=== PATIENT | female | born 1935 | race Caucasian/White ===

== ENCOUNTER → 2018-05-16 | Outpatient (CLI) | payer MEDICARE ==
--- NOTE | 2018-05-16 13:44 | RADIOLOGY REPORT (SQ) ---
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 TECHNIQUE: CT scan of the chest performed using helical scanning technique with dynamic intravenous contrast injection. Images reviewed with lung, soft tissue and bone windows. Reconstructed coronal and sagittal MPR images reviewed. Additional 3 dimensional post-processing performed to develop Maximal Intensity Projection images (DE P). All images stored on PACS. All CT scanners at this facility use dose modulation, iterative reconstruction, and/or weight based d osing when appropriate to reduce radiation dose to as low as reasonably achievable (ALARA). [facility]: Dose Right [facility]: CareDose [facility]: Dose Right [facility]: Teradose 4D [facility]: [place] CONTRAST TYPE AND DOSE: contrast/concentration: Isovue 350.00 mg/ml; Total Contrast Delivered: 50.0 ml; Total Saline Delivered: 80.0 ml Contrast bolus optimized for the aorta. Not diagnostic for the pulmonary arteries. RENAL FUNCTION: Creatinine 0.6 RADIATION DOSE: CT Rad equipment meets quality standard of care and radiation dose reduction techniq ues were employed. CTDIvol: 14.2 - 25.4 mGy. DLP: 504 mGy-cm. . LIMITATIONS: None. FINDINGS: LUNGS AND PLEURA: No masses, infiltrates, or pneumothorax. No pleural effusions or pleura l calcifications. AORTA AND GREAT VESSELS: There is a 41 mm aneurysm of the ascending aorta. There is no aortic dissec tion. There is some mural thrombus in the thoracic aorta. HEART: No pericardial effusion. Moderate to marked coronary artery calcifications. PULMONARY ARTERIES: The bolus is not optimized for the pulmonary arteries and emboli cannot be exclud ed on the basis of this study. HILAR AND MEDIASTINAL STRUCTURES: No identified masses or abnormal nodes. HARDWARE: None in the chest. UPPER ABDOMEN: No significant findings. Limited exam. THYROID AND OTHER SOFT TISSUES: No masses. No adenopathy. BONES: No acute or significant finding. 3D MIPS: Confirm above findings. OTHER: No other significant finding. IMPRESSION: 41 mm aneurysm of the ascending aorta. No dissection. There are areas of mural thrombu s in the thoracic aorta. There is extensive coronary atherosclerosis. COMMENT: Quality ID # 436: Final reports with documentation of one or more dose reduction techniques (e.g., Automated exposure control, adjustment of the mA and/or kV according to patient size, use of iterative reconstruction technique) TECHNICAL DOCUMENTATION: JOB ID: [id number] [employer]- All Rights Reserved Reading location - IP/workstation name: [email or web address]
== END ==
LOC: RAD 13:28
PROVIDERS: ATTEND Internal Medicine Cardiovascular Disease
DX: I71.2 Thoracic aortic aneurysm, without rupture (principal)
CPT/HCPCS: 71275; 82565

== ENCOUNTER 2019-12-25 16:17 | Inpatient (IN) | payer MEDICARE ==
[2019-12-25 17:09] LABS: INTERNATIONAL RATION (INR) 1.03; PROTHROMBIN TIME 13.5 SEC (11.4-15.4)
[2019-12-25 17:22] LABS: ABSOLUTE BASOPHILS # (AUTO) 0.1 10^3/uL (0.0-0.2); ABSOLUTE EOSINOPHILS # (AUTO) 0.2 10^3/uL (0.0-0.6); HEMOGLOBIN 13.5 g/dL (12.0-15.5); TOTAL CELLS COUNTED % (AUTO) 100 %
[2019-12-25 17:29] LABS: ABSOLUTE LYMPHOCYTES (AUTO) 2.1 10^3/uL (0.5-4.7); ABSOLUTE MONOCYTES (AUTO) 1.2 10^3/uL (0.1-1.4); ABSOLUTE NEUT (AUTO) 8.2 10^3/uL (1.7-8.2); BASOPHILS % (AUTO) 1.2 % (0-2); EOSINOPHILS % (AUTO) 1.7 % (0-6); HEMATOCRIT 38.9 % (36.0-47.0); LYMPHOCYTES % (AUTO) 17.8 % (13-45); MEAN CORPUSCULAR HEMOGLOBIN 32.5 pg (27.0-33.4); MEAN CORPUSCULAR HGB CONC 34.6 g/dL (32.0-36.0); MEAN CORPUSCULAR VOLUME 94 fl (80-97); MONOCYTES % (AUTO) 9.9 % (3-13); PLATELET COUNT 339 10^3/uL (150-450); RED BLOOD COUNT 4.14 10^6/uL (3.72-5.28); RED CELL DISTRIBUTION WIDTH 13.3 % (11.5-14.0); SEGMENTED NEUTROPHILS % (AUTO) 69.4 % (42-78); WHITE BLOOD COUNT 11.8 10^3/uL (4.0-10.5)
[2019-12-25 17:35] LABS: ALBUMIN 4.3 g/dL (3.5-5.0); ALKALINE PHOSPHATASE 82 U/L (38-126); ANION GAP 9 (5-19); ASPARTATE AMINO TRANSFERASE 56 U/L (14-36); BILIRUBIN,DIRECT 0.1 mg/dL (0.0-0.4); BILIRUBIN,TOTAL 0.6 mg/dL (0.2-1.3); BLOOD UREA NITROGEN 14 mg/dL (7-20); CALCIUM 9.9 mg/dL (8.4-10.2); CARBON DIOXIDE 26 mmol/L (22-30); CHLORIDE 97 mmol/L (98-107); GLUCOSE 271 mg/dL (75-110); POTASSIUM 4.5 mmol/L (3.6-5.0); TOTAL PROTEIN 7.9 g/dL (6.3-8.2)
--- NOTE | 2019-12-25 17:40 | RADIOLOGY REPORT (SQ) ---
EXAM DESCRIPTION: CHEST SINGLE VIEW IMAGES COMPLETED DATE/TIME: 12/25/2019 4:19 pm REASON FOR STUDY: altered mental status COMPARISON: CT chest, 05/16/2018. EXAM PARAMETERS: NUMBER OF VIEWS: One view. TECHNIQUE: Single frontal radiographic view of the chest acquired. RADIATION DOSE: NA LIMITATIONS: None. FINDINGS: LUNGS AND PLEURA: Lungs are clear no focal consolidation or pleural effusion. No pneumoth orax. MEDIASTINUM AND HILAR STRUCTURES: No masses. Contour normal. HEART AND VASCULAR STRUCTURES: Heart normal in size. Normal vasculature. BONES: No acute findings. HARDWARE: None in the chest. OTHER: No other significant finding. IMPRESSION: NO ACUTE RADIOGRAPHIC FINDING IN THE CHEST. TECHNICAL DOCUMENTATION: JOB ID: [id number] 2010 [employer] All Rights Reserved Reading location - IP/workstation name: [email or web address]
[2019-12-25] MEDS ORDERED: LORAZEPAM INJ 2 MG/1 ML VIAL IV ONE (17:58)
--- NOTE | 2019-12-25 19:17 | ER Document Report ---
ED General - General Chief Complaint: Altered Mental Status Stated Complaint: AMS Time Seen by Provider: 12/25/19 16:46 Primary Care Provider: FRANNIE ZIMMERMAN MD [Primary Care Provider] - Follow up as needed TRAVEL OUTSIDE OF THE [place] IN LAST 30 DAYS: No - HPI Notes: This is an 84-year-old female brought into the emergency department for evaluation of altered mental status. Entire medical history is obtained from the daughter. Evidently the patient went to sleep at 11 PM. She woke at 5 AM to go to the bathroom with the daughter's assistance. She was acting normally. She went back to sleep immediately. She woke up at 1030. According to daughter, at that point she had altered mental status. She was laying on her left side, from which she still has deficits from her stroke. She was reaching out with her right side, acting confused. Her speech seemed garbled. Patient's daughter called EMS, but at 11 AM the patient refused to go in for transport. Daughter states that she was washing her face oddly, getting water all down her front, and her speech continued to be odd, so she eventually called EMS for further evaluation. They administered Versed and brought her here for further evaluation. The patient cannot offer me any meaningful history. She keeps yelling out for her daughter. She is angry, states she wants to go home. - Related Data Allergies/Adverse Reactions: No Known Allergies Allergy (Verified 12/25/19 16:22) Home Medications: amlodipine, vitamin D 3, aspirin 81 mg, CBD oil Past Medical History - General Information source: Relative, Emergency Med Personnel - Social History Smoking Status: Former Smoker Frequency of alcohol use: None Family History: Hypertension, Malignancy - Past Medical History Cardiac Medical History: Reports: Hx Hypertension, Other - Ascending aortic aneurysm Neurological Medical History: Reports: Hx Cerebrovascular Accident - With left- sided deficit, October 2013 Review of Systems - Review of Systems -: Yes ROS unobtainable due to patient's medical condition Physical Exam - Vital signs Vitals: Resp 17 12/25/19 19:38 - Notes Notes: This is an 84-year-old female who appears her stated age. She is exhibiting some dysarthria and mild to moderate aphasia. Vital signs reviewed, please refer to chart. Head is normocephalic, atraumatic. Pupils equal round, reactive to light. Neck is supple without meningismus. Heart is regular rate and rhythm. Lungs are clear to auscultation bilaterally. Abdomen is soft, nontender, normoactive bowel sounds throughout. Extremities without cyanosis, clubbing. Posterior calves are nontender. Peripheral pulses are equal. Skin is warm and dry. Patient is awake, alert, yelling out intermittently. She has some mild aphasia, mild dysarthria, but the majority of her words are intelli gible. She will not cooperate with exam, but does move all 4 extremities spontaneously, just less frequently the left upper extremity than others. She is hyperreflexive on the left. She has no gross facial asymmetry. Sensation appears to be intact to all 4 extremities. Course - Re-evaluation Re-evalutation: 12/25/19 19:15 Patient presents to the emergency department for evaluation. On initial evaluation, the patient would barely interact with me. She seemed altered, but was only exhibiting mild aphasia, which seemed consistent with simple delirium/altered mental status. On further examination, it became more clear that the patient may in fact be exhibiting signs of a CVA. CT scan of the head, and CTA of the head and neck are ordered, to evaluate for large vessel occlusion. This patient, even when she originally presented, was well outside of the TPA window given an onset between 5 AM and 10:30 AM this morning. She was already 5-1/2 hours from symptom onset at the earliest, which again puts her well outside the TPA window. I do however, think that it is appropriate to look for large vessel occlusion, to see if she is a candidate for intra-arterial TPA or other revascularization. Laboratory investigations were largely unremarkable. Still awaiting urinalysis. CT scan, CTA of the head and neck have been ordered. We will continue to monitor. I did consider MRI, but I suspect the patient will require full blown sedation to stay still long enough for such a study. 12/25/19 21:50 Patient's laboratory investigations are largely unremarkable. CT scan CTA of the head and neck are unremarkable for any large vessel acute lesion. I do strongly suspect that this patient has in fact had a CVA, but I do not believe that she has any intervention that is possible that is going to help at this time. Ordered a swallow screen, ordered aspirin. I spoke with Dr. Herring, he will admit the patient for further care. I will speak again to the patient's daughter and update her on findings. 12/25/19 22:09 I updated the patient's daughter. I notified her of my suspicion that the patient has had an acute stroke. I explained to her that she has no large vessel occlusion. Again she was well outside the TPA window. I explained to her that admission to this hospital for PT and OT, optimal medical therapy, was appropriate. The patient thought perhaps her mother should be sent to a large stroke center, and requests that this happen. Phone call currently pending to [facility]. 12/25/19 22:34 I spoke to neurology at [facility], nurse practitioner Christina Lowery. We discussed this patient at length. She states that she is not entirely convinced of the CVA diagnosis, agrees that there is no further intervention that would be indicated, and medical management would be appropriate in this patient with multiple medical issues and a DNR in place. I spoke with the daughter about this, she was updated on the plan. Patient will be admitted to [facility] [place], Dr. Herring. - Vital Signs Vital signs: Temp Pulse Resp BP Pulse Ox 88 30 H 151/117 H 94 12/25/19 19:47 12/25/19 19:47 12/25/19 19:47 12/25/19 19:47 - Laboratory Result Diagrams: 12/25/19 16:39 12/25/19 16:39 Laboratory results interpreted by me: 12/25/19 12/25/19 12/25/19 16:39 16:39 20:55 WBC 11.8 H Sodium 132.2 L Chloride 97 L Glucose 271 H AST 56 H ALT 37 H Urine Protein 100 H Urine Glucose (UA) 50 H Ur Leukocyte Esterase TRACE H - Diagnostic Test Radiology reviewed: Reports reviewed Radiology results interpreted by me: 12/25/19 21:01 Chest X-Ray 12/25/19 16:54 IMPRESSION: NO ACUTE RADIOGRAPHIC FINDING IN THE CHEST. Head CT 12/25/19 16:54 IMPRESSION: Involutional changes with chronic microvascular ischemia and no acute intracranial imaging finding. EVIDENCE OF ACUTE STROKE: NO. Head CTA 12/25/19 17:55 IMPRESSION: Right internal carotid artery diffuse narrowing, string sign but patency maintained, likely chronic in nature. Mild 50% left internal carotid artery stenosis. No evidence for intracranial large vessel occlusion. Neck CTA 12/25/19 17:56 IMPRESSION: Right internal carotid artery diffuse narrowing, string sign but patency maintained, likely chronic in nature. Mild 50% left internal carotid artery stenosis. No evidence for intracranial large vessel occlusion. - EKG Interpretation by Me Additional EKG results interpreted by me: 12/25/19 21:02 Sinus mechanism with a rate of 68 bpm. PAC noted. Normal axis for age. Nonspecific ST changes, no acute ST changes concerning for acute infarction. Discharge - Discharge Clinical Impression: Altered mental status, Probable CVA Condition: Stable Disposition: ADMITTED INPATIENT Admitting Provider: Nevaeh (Hospitalist) Unit Admitted: [facility]U Referrals: FRANNIE ZIMMERMAN MD [Primary Care Provider] - Follow up as needed
--- NOTE | 2019-12-25 20:06 | RADIOLOGY REPORT (SQ) ---
EXAM DESCRIPTION: CT HEAD WITHOUT IMAGES COMPLETED DATE/TIME: 12/25/2019 7:33 pm REASON FOR STUDY: altered mental status COMPARISON: None. TECHNIQUE: Axial images acquired through the brain without intravenous contrast. Images reviewed wi th bone, brain and subdural windows. Additional sagittal and coronal reconstructions were generated. Images stored on PACS. All CT scanners at this facility use dose modulation, iterative reconstruction, and/or weight based d osing when appropriate to reduce radiation dose to as low as reasonably achievable (ALARA). [facility]: Dose Right [facility]: CareDose [facility]: Dose Right [facility]: Teradose 4D [facility]: Smart Microdermis RADIATION DOSE: CT Rad equipment meets quality standard of care and radiation dose reduction techniq ues were employed. CTDIvol: 4.2 - 53.2 mGy. DLP: 1569 mGy-cm. mGy. LIMITATIONS: None. FINDINGS: VENTRICLES: Prominent ventricles secondary to involutional atrophy. CEREBRUM: No masses. No hemorrhage. No midline shift. No evidence for acute infarction. Areas of l ow density in the white matter most likely chronic small vessel ischemic changes. CEREBELLUM: No masses. No hemorrhage. No alteration of density. No evidence for acute infarction. EXTRAAXIAL SPACES: No fluid collections. No masses. ORBITS AND GLOBE: No intra- or extraconal masses. Normal contour of globe without masses. CALVARIUM: No fracture. PARANASAL SINUSES: No fluid or mucosal thickening. SOFT TISSUES: No mass or hematoma. OTHER: No other significant finding. IMPRESSION: Involutional changes with chronic microvascular ischemia and no acute intracranial imagi ng finding. EVIDENCE OF ACUTE STROKE: NO. COMMENT: Quality ID # 436: Final reports with documentation of one or more dose reduction techniques (e.g., Automated exposure control, adjustment of the mA and/or kV according to patient size, use of iterative reconstruction technique) TECHNICAL DOCUMENTATION: JOB ID: [id number] 2010 [employer]- All Rights Reserved Reading location - IP/workstation name: [email or web address]
--- NOTE | 2019-12-25 20:23 | RADIOLOGY REPORT (SQ) ---
EXAM DESCRIPTION: CT NECK ANGIOGRAPHY WITHOUT THEN WITH IV CONTRAST, CT HEAD ANGIOGRAPHY WITHOUT THEN WITH IV CONTRAST COMPLETED DATE/TME: 12/25/2019 17:56 (accession [id number]), 12/25/2019 17:55 (accession [id number]) CLINICAL HISTORY: 84 years, Female, neuro deficit, stroke suspected This exam was performed according to our departmental dose-optimization program which includes automated exposure control, adjustment of the mA and/or kVp according to patient size and/or use of iterative reconstruction technique where applicable. FINDINGS: No acute intracranial hemorrhage, mass effect or midline shift. No extra-axial fluid collections. Ventricles and subarachnoid spaces are moderately dilated consistent with cerebral atrophy. Moderate patchy hypodense areas in the periventricular white matter both cerebral hemispheres consistent with chronic small vessel ischemic changes. Visualized paranasal sinuses and the mastoid air cells are clear. The skull is intact. Aortic arch is moderately atherosclerotic with ulcerated plaque. Innominate, right subclavian and left subclavian artery is moderately atherosclerotic with mild tortuous vessels. Common carotid arteries are tortuous without significant stenosis. Right carotid bulb demonstrates atherosclerotic changes. The right internal carotid artery demonstrates streak sign with diffuse narrowing throughout its course. Left internal carotid artery demonstrates mild 50% stenosis. External carotid arteries are patent. The vertebral arteries are patent with left vertebral artery being dominant. Intracranial portions of the internal carotid arteries demonstrate moderate atherosclerotic changes of the cavernous sinus portions of the internal carotid arteries. The middle and anterior cerebral arteries are preserved. Basilar artery is widely patent. Posterior cerebral arteries are patent. Left posterior communicating artery is intact. Anterior communicating artery is intact. There is mild motion artifact in the brain. IMPRESSION: Right internal carotid artery diffuse narrowing, string sign but patency maintained, likely chronic in nature. Mild 50% left internal carotid artery stenosis. No evidence for intracranial large vessel occlusion.
[2019-12-25 21:26] LABS: APPEARANCE,URINE CLEAR; BILIRUBIN,URINE NEGATIVE (NEGATIVE); COLOR,URINE STRAW; GLUCOSE, URINE 50 mg/dL (NEGATIVE); KETONES,URINE NEGATIVE (NEGATIVE); LEUKOCYTE ESTERASE,URINE TRACE (NEGATIVE); NITRITE,URINE NEGATIVE (NEGATIVE); PROTEIN,URINE 100 mg/dL (NEGATIVE); URINE SPECIFIC GRAVITY 1.038; UROBILINOGEN,URINE NEGATIVE mg/dL (<2.0)
[2019-12-25] MEDS ORDERED: ASPIRIN 325 MG TABLET PO ONE (21:47)
[2019-12-25] MEDS ORDERED: MORPHINE SULFATE 10 MG/ML INJ IV PRN (22:45)
[2019-12-25] MEDS ORDERED: ACETAMINOPHEN 650 MG SUPP.RECT PR PRN (23:14)
[2019-12-25] MEDS ORDERED: MAGNESIUM HYDROXIDE SUSP 30 ML UDCUP PO PRN (23:14)
[2019-12-25] MEDS ORDERED: DOCUSATE SODIUM 100 MG CAPSULE PO PRN (23:14)
[2019-12-25] MEDS ORDERED: DEXTROSE 40% GEL 15 GM TUBE PO PRN ×2 (23:18)
[2019-12-25] MEDS ORDERED: LORAZEPAM INJ 2 MG/1 ML VIAL IV PRN (23:18)
[2019-12-25] MEDS ORDERED: DEXTROSE 50%-WATER 25 GM/50 ML DISP.SYRIN IV PRN ×2 (23:18)
[2019-12-25] MEDS ORDERED: HYDRALAZINE HCL INJ/PF 20 MG/1 ML SDV IV PRN (23:18)
[2019-12-25] MEDS ORDERED: GLUCAGON,HUMAN RECOMB 1 MG INJ IM PRN (23:18)
[2019-12-25] MEDS ORDERED: METOPROLOL TARTRATE PF/INJ 5 MG/5 ML SDV IV PRN (23:18)
[2019-12-25] MEDS ORDERED: PROMETHAZINE HCL INJ 25 MG/1 ML VIAL IV PRN (23:19)
[2019-12-26] MEDS ORDERED: FAMOTIDINE INJ/PF 20 MG/2 ML SDV IV ONE (00:30)
--- NOTE | 2019-12-26 00:48 | PDOC H&P ---
History of Present Illness Admission Date/PCP: 12/25/2019 22:42 FRANNIE ZIMMERMAN MD Patient complains of: Altered mental status History of Present Illness: TWILA SEAY is a 84 year old female who presented to the emergency room via EMS with acute altered mental status. Patient is combative and uncooperative with acute delirium. She is unable to participate in providing medical history. Patient's daughter indicates that she was last normal when she awoke at 5 AM to go to the bathroom. When the patient woke again at 10:30 AM she seemed to be having trouble with her speech and yelling and uncooperative. She refused to be transported to the hospital at that time, but continued to have progressively more garbled speech and was increasingly uncooperative and combative, resulting in her eventual transfer port to the emergency room. In the emergency room she was noted to have mild dysarthria, delirium with confusion and was uncooperative with her neurologic exam. A CT scan of her head showed no acute changes and a CTA of the head and neck were also unremarkable. She was subsequently admitted for further evaluation and treatment per the stroke protocol. Past Medical History Past Medical History: The patient is unable to provide input due to her acute delirium, so past medical history, past surgical history, family medical history and social history information is taken from the best available reliable source. 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 Denies: Hemorrhagic CVA, Seizures Endocrine Medical History: Reports: Diabetes Mellitus Type 2 Denies: Diabetes Mellitus Type 1 Renal/ Medical History: Denies: Chronic Kidney Disease, Nephrolithiasis Malignancy Medical History: Reports: None GI Medical History: Denies: Cirrhosis, Hepatitis Musculoskeltal Medical History: Denies: Arthritis, Gout Skin Medical History: Denies: Eczema, Psoriasis Psychiatric Medical History: Denies: Alcohol Dependency, Substance Abuse, Tobacco Dependency Traumatic Medical History: Reports: None Hematology: Denies: Anemia, Bleeding Tendencies Infectious Medical History: Reports: None Past Surgical History Past Surgical History: The patient is unable to provide input due to her acute delirium, so past medical history, past surgical history, family medical history and social history information is taken from the best available reliable source. Past Surgical History: Reports: Other - No surgical history is available at this time. Social History Information Source: Relative, Emergency Med Personnel, [facility] Records Lives with: Family Smoking Status: Former Smoker Electronic Cigarette use?: No Frequency of Alcohol Use: None Hx Recreational Drug Use: No Drugs: None Hx Prescription Drug Abuse: No Past Social History Note: The patient is unable to provide input due to her acute delirium, so past medical history, past surgical history, family medical history and social history information is taken from the best available reliable source. - Advance Directive Resuscitation Status: Do Not Resuscitate Surrogate healthcare decision maker:: Katherin White Family History Family History: Hypertension, Malignancy Family History: The patient is unable to provide input due to her acute delirium, so past medical history, past surgical history, family medical history and social history information is taken from the best available reliable source. Parental Family History Reviewed: Yes Children Family History Reviewed: No Sibling(s) Family History Reviewed.: Yes Medication/Allergy Allergies/Adverse Reactions: No Known Allergies Allergy (Verified 12/25/19 16:22) Review of Systems ROS unobtainable: Due to mental status - Acute delirium Physical Exam Vital Signs: Temp Pulse Resp BP Pulse Ox 88 30 H 151/117 H 94 12/25/19 19:47 12/25/19 19:47 12/25/19 19:47 12/25/19 19:47 Intake & Output 12/23/19 12/24/19 12/25/19 23:59 23:59 23:59 Weight 72.575 kg General appearance: PRESENT: other - Combative and belligerent. ABSENT: cooperative - Uncooperative with exam Head exam: PRESENT: atraumatic, normocephalic Eye exam: PRESENT: conjunctiva pink. ABSENT: conjunctival injection, scleral icterus Ear exam: PRESENT: normal external ear exam. ABSENT: bleeding, drainage Mouth exam: PRESENT: dry mucosa, neck supple Neck exam: ABSENT: thyromegaly, tracheal deviation Respiratory exam: PRESENT: clear to auscultation karyn, symmetrical, unlabored Cardiovascular exam: PRESENT: RRR. ABSENT: clicks, gallop, rubs Pulses: PRESENT: normal radial pulses, normal dorsalis pedis pul Vascular exam: PRESENT: normal capillary refill. ABSENT: pallor GI/Abdominal exam: PRESENT: normal bowel sounds, soft Rectal exam: PRESENT: deferred Extremities exam: ABSENT: joint swelling, pedal edema Musculoskeletal exam: ABSENT: deformity, dislocation Neurological exam: PRESENT: other - Combative and belligerent, uncooperative with exam Psychiatric exam: PRESENT: agitated, other - Uncooperative Focused psych exam: PRESENT: psychomotor agitation Skin exam: PRESENT: dry, intact, warm. ABSENT: jaundice, rash, urticaria Results Laboratory Results: 12/25/19 16:39 12/25/19 16:39 12/25/19 12/25/19 12/25/19 16:39 16:39 20:55 WBC 11.8 H RBC 4.14 Hgb 13.5 Hct 38.9 MCV 94 MCH 32.5 MCHC 34.6 RDW 13.3 Plt Count 339 Seg Neutrophils % 69.4 Sodium 132.2 L Potassium 4.5 Chloride 97 L Carbon Dioxide 26 Anion Gap 9 BUN 14 Creatinine 0.55 Est GFR ( Amer) > 60 Glucose 271 H Calcium 9.9 Magnesium 1.9 Total Bilirubin 0.6 AST 56 H Alkaline Phosphatase 82 Total Protein 7.9 Albumin 4.3 Urine Color STRAW Urine Appearance CLEAR Urine pH 7.0 Ur Specific [place] 1.038 Urine Protein 100 H Urine Glucose (UA) 50 H Urine Ketones NEGATIVE Urine Blood NEGATIVE Urine Nitrite NEGATIVE Ur Leukocyte Esterase TRACE H Urine WBC (Auto) 5 Urine RBC (Auto) 2 12/25/19 16:39 Troponin I < 0.012 Impressions: Chest X-Ray 12/25/19 16:54 IMPRESSION: NO ACUTE RADIOGRAPHIC FINDING IN THE CHEST. Head CT 12/25/19 16:54 IMPRESSION: Involutional changes with chronic microvascular ischemia and no acute intracranial imaging finding. EVIDENCE OF ACUTE STROKE: NO. Head CTA 12/25/19 17:55 IMPRESSION: Right internal carotid artery diffuse narrowing, string sign but patency maintained, likely chronic in nature. Mild 50% left internal carotid artery stenosis. No evidence for intracranial large vessel occlusion. Neck CTA 12/25/19 17:56 IMPRESSION: Right internal carotid artery diffuse narrowing, string sign but patency maintained, likely chronic in nature. Mild 50% left internal carotid artery stenosis. No evidence for intracranial large vessel occlusion. Assessment and Plan - Diagnosis (1) Altered mental status Qualifiers: Altered mental status type: delirium Qualified Code(s): R41.0 - Disorientation, unspecified Is this a current diagnosis for this admission?: Yes (2) Diabetes mellitus type 2 in nonobese Is this a current diagnosis for this admission?: Yes (3) Essential hypertension Is this a current diagnosis for this admission?: Yes (4) Hyperglycemia due to type 2 diabetes mellitus Is this a current diagnosis for this admission?: Yes (5) Hyponatremia Is this a current diagnosis for this admission?: Yes - Plan Summary Summary: Patient will be admitted to [facility], where she will receive routine supportive and symptomatic cares per the stroke protocol. Aspirin therapy was initiated in the emergency room. She will receive Ativan 1 mg IV every 4 hours as needed for anxiety or restlessness. She will receive Haldol 5 mg IV every 4 hours as needed for agitation. A speech therapy consultation and physical therapy consultation will be obtained. Patient will be on a cardiac and diabetic restricted diet. If patient becomes cooperative, consideration for an MRI of the head would be appropriate if she continues to demonstrate new psychologic changes/neurologic deficits. - Time Time Spent with patient: Less than 15 minutes Medications reviewed and adjusted accordingly: Yes Anticipated discharge: SNF - Inpatient Certification Based on my medical assessment, after consideration of the patient's comorbidities, presenting symptoms, or acuity I expect that the services needed warrant INPATIENT care.: Yes I certify that my determination is in accordance with my understanding of Medicare's requirements for reasonable and necessary INPATIENT services [42 CFR 412.3e].: Yes Medical Necessity: Significant Comorbidiites Make Outpatient Treatment Too Risky, Need Close Monitoring Due to Risk of Patient Decompensation, Need For Continuous Telemetry Monitoring, Need for Neurological Checks, Risk of Complication if Not Cared For in Hospital
[2019-12-26] MEDS: HEPARIN SOD (PORCINE) 5,000 UNIT/ML 1 ML VIAL SUBCUT SCH ×3 (06:37→21:47)
[2019-12-26 07:00] LABS: HEMATOCRIT 36.8 % (36.0-47.0); HEMOGLOBIN 12.9 g/dL (12.0-15.5); MEAN CORPUSCULAR HEMOGLOBIN 32.6 pg (27.0-33.4); MEAN CORPUSCULAR VOLUME 93 fl (80-97); PLATELET COUNT 323 10^3/uL (150-450); RED BLOOD COUNT 3.95 10^6/uL (3.72-5.28); RED CELL DISTRIBUTION WIDTH 13.3 % (11.5-14.0); WHITE BLOOD COUNT 12.7 10^3/uL (4.0-10.5)
[2019-12-26 07:22] LABS: ANION GAP 10 (5-19); BLOOD UREA NITROGEN 11 mg/dL (7-20); CALCIUM 9.4 mg/dL (8.4-10.2); CARBON DIOXIDE 25 mmol/L (22-30); CHLORIDE 100 mmol/L (98-107); CHOLESTEROL 243.22 mg/dL (0-200); GLUCOSE 184 mg/dL (75-110); POTASSIUM 4.2 mmol/L (3.6-5.0); TRIGLYCERIDES 247 mg/dL (<150)
[2019-12-26 07:33] LABS: DIRECT LDL 174 mg/dL (<100)
[2019-12-26 07:35] LABS: VLDL CHOLESTEROL 49.4 mg/dL (10-31)
--- NOTE | 2019-12-26 07:42 | EKG REPORT ---
SEVERITY:- ABNORMAL ECG - SINUS RHYTHM ATRIAL PREMATURE COMPLEX PROBABLE INFERIOR INFARCT, OLD LATERAL LEADS ARE ALSO INVOLVED : Confirmed by: Wesley Pelaez MD 26-Dec-2019 07:42:12
[2019-12-26] MEDS: INSULIN REG, HUMAN 100 UNIT/ML 3 ML VIAL (PYX) SUBCUT SCH ×3 (08:08→17:00)
[2019-12-26] MEDS: FAMOTIDINE INJ/PF 20 MG/2 ML SDV IV SCH ×2 (10:44→21:49)
[2019-12-26] MEDS: ASPIRIN 81 MG TABLET, ENT COATED PO SCH (10:44)
[2019-12-26] MEDS: CEFTRIAXONE 1 GM/D5W RTU 1 GM/50 ML RTUPB IV SCH (10:47)
--- NOTE | 2019-12-26 13:44 | RADIOLOGY REPORT (SQ) ---
EXAM DESCRIPTION: MRI HEAD WITHOUT; MRA HEAD WITHOUT IMAGES COMPLETED DATE/TIME: 12/26/2019 1:23 pm REASON FOR STUDY: Aphasia r/o CVA; AMS, STROKE COMPARISON: CT brain 12/25/2019 CT angio head and neck 12/25/2019 TECHNIQUE: Multiplanar imaging includes non-contrasted T1, T2, FLAIR, and diffusion with ADC map seq uences. Images stored on PACS. [place] [facility] [place] MRA exam was performed with 3D [id number] acquisition. Source data and maximum intensity projected images were reviewed. Images stored on PACs. LIMITATIONS: None. FINDINGS: ANATOMY: No developmental anomalies. Normal vascular flow voids. Pituitary fossa normal. CSF SPACES: Normal in size and contour. No hemorrhage. CEREBRUM: Diffusion-weighted images are positive for acute/early subacute ischemic change in the left posterior temporal cortex and subcortical white matter extending into the posterior insular cortex. Changes are best shown on axial images 12-17. There is associated signal abnormality on FLAIR/T2 rodríguez ggesting that this is greater than 24 hours old. No superimposed hemorrhage. Findings discussed wit parveen Schaeffer. Elsewhere, patient has moderate chronic small vessel ischemic change in the hemispheric white matter right greater than left. Old lacunar infarcts in the left basal ganglia. POSTERIOR FOSSA: Moderate chronic pontine white matter disease. No hemorrhage. No edema, masses or ma ss effect. Internal auditory canals, cerebello-pontine angles, mastoids normal. DIFFUSION IMAGING: Negative for acute or sub-acute infarction. ORBITS: No masses. Globes normal. PARANASAL SINUSES: No fluid levels. Mucosa normal. [place] MRA: Source data and maximum intensity projected images demonstrate a decrease in signal intensity through out the right high cervical, skullbase, paraclinoid ICA as compared to the left. Decreased flow sign al in the right MCA and its major branches as compared to left. Prior CT angio of the neck demonstra qamar a diminutive cervical ICA from the bifurcation through the intracranial circulation, question rem ote prior cervical ICA dissection. Normal flow signal in the left carotid cervical, skullbase, parasellar circulation. Normal flow in t he bilateral anterior cerebral and left middle cerebral artery. Vertebrobasilar system is unremarkable in the field of view IMPRESSION: Left-sided and early subacute nonhemorrhagic posterior temporal/insular cortex infarct. Moderate chronic white matter disease elsewhere in the brain and lulu. 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 Findings are similar compared to CTA head and neck 12/25/2019. Findings discussed with Dr. Schaeffer EVIDENCE OF ACUTE STROKE: Yes, early subacute left posterior temporal cortical and subcortical white matter infarct. TECHNICAL DOCUMENTATION: JOB ID: [id number] 2010 [employer]- All Rights Reserved Reading location - IP/workstation name: [id number]
--- NOTE | 2019-12-26 13:44 | RADIOLOGY REPORT (SQ) ---
EXAM DESCRIPTION: MRI HEAD WITHOUT; MRA HEAD WITHOUT IMAGES COMPLETED DATE/TIME: 12/26/2019 1:23 pm REASON FOR STUDY: Aphasia r/o CVA; AMS, STROKE COMPARISON: CT brain 12/25/2019 CT angio head and neck 12/25/2019 TECHNIQUE: Multiplanar imaging includes non-contrasted T1, T2, FLAIR, and diffusion with ADC map seq uences. Images stored on PACS. [place] [facility] [place] MRA exam was performed with 3D [id number]-[id number] acquisition. Source data and maximum intensity projected images were reviewed. Images stored on PACs. LIMITATIONS: None. FINDINGS: ANATOMY: No developmental anomalies. Normal vascular flow voids. Pituitary fossa normal. CSF SPACES: Normal in size and contour. No hemorrhage. CEREBRUM: Diffusion-weighted images are positive for acute/early subacute ischemic change in the left posterior temporal cortex and subcortical white matter extending into the posterior insular cortex. Changes are best shown on axial images 12-17. There is associated signal abnormality on FLAIR/T2 rodríguez ggesting that this is greater than 24 hours old. No superimposed hemorrhage. Findings discussed wit parveen Schaeffer. Elsewhere, patient has moderate chronic small vessel ischemic change in the hemispheric white matter right greater than left. Old lacunar infarcts in the left basal ganglia. POSTERIOR FOSSA: Moderate chronic pontine white matter disease. No hemorrhage. No edema, masses or ma ss effect. Internal auditory canals, cerebello-pontine angles, mastoids normal. DIFFUSION IMAGING: Negative for acute or sub-acute infarction. ORBITS: No masses. Globes normal. PARANASAL SINUSES: No fluid levels. Mucosa normal. [place] MRA: Source data and maximum intensity projected images demonstrate a decrease in signal intensity through out the right high cervical, skullbase, paraclinoid ICA as compared to the left. Decreased flow sign al in the right MCA and its major branches as compared to left. Prior CT angio of the neck demonstra qamar a diminutive cervical ICA from the bifurcation through the intracranial circulation, question rem ote prior cervical ICA dissection. Normal flow signal in the left carotid cervical, skullbase, parasellar circulation. Normal flow in t he bilateral anterior cerebral and left middle cerebral artery. Vertebrobasilar system is unremarkable in the field of view IMPRESSION: Left-sided and early subacute nonhemorrhagic posterior temporal/insular cortex infarct. Moderate chronic white matter disease elsewhere in the brain and lulu. 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 Findings are similar compared to CTA head and neck 12/25/2019. Findings discussed with Dr. Schaeffer EVIDENCE OF ACUTE STROKE: Yes, early subacute left posterior temporal cortical and subcortical white matter infarct. TECHNICAL DOCUMENTATION: JOB ID: [id number] 2010 [employer]- All Rights Reserved Reading location - IP/workstation name: [id number]
[2019-12-26] MEDS ORDERED: DEXTROSE 40% GEL 15 GM TUBE PO PRN ×2 (17:55)
[2019-12-26] MEDS ORDERED: GLUCAGON,HUMAN RECOMB 1 MG INJ IM PRN (17:55)
[2019-12-26] MEDS ORDERED: DEXTROSE 50%-WATER 25 GM/50 ML DISP.SYRIN IV PRN ×2 (17:55)
[2019-12-26] MEDS ORDERED: ENALAPRIL MALEATE 2.5 MG TABLET PO SCH (18:00)
--- NOTE | 2019-12-26 18:07 | PDOC H&P ---
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 Denies: Hemorrhagic CVA, Seizures Endocrine Medical History: Reports: Diabetes Mellitus Type 2 Denies: Diabetes Mellitus Type 1 Renal/ Medical History: Denies: Chronic Kidney Disease, Nephrolithiasis Malignancy Medical History: Reports: None GI Medical History: Denies: Cirrhosis, Hepatitis Musculoskeltal Medical History: Denies: Arthritis, Gout Skin Medical History: Denies: Eczema, Psoriasis Psychiatric Medical History: Denies: Alcohol Dependency, Depression, Substance Abuse, Tobacco Dependency Traumatic Medical History: Reports: None Hematology: Denies: Anemia, Bleeding Tendencies Infectious Medical History: Reports: None Past Surgical History Past Surgical History: Reports: Other - No surgical history is available at this time. Social History Lives with: Family Smoking Status: Former Smoker Electronic Cigarette use?: No Frequency of Alcohol Use: None Hx Recreational Drug Use: No Drugs: None Hx Prescription Drug Abuse: No - Advance Directive Resuscitation Status: Do Not Resuscitate Family History Family History: Hypertension, Malignancy Parental Family History Reviewed: Yes Children Family History Reviewed: Yes Sibling(s) Family History Reviewed.: Yes Medication/Allergy Home Medications: Amlodipine Besylate [Norvasc 5 mg Tablet] 5 mg PO DAILY 12/26/19 Aspirin [Aspirin 325 mg Tablet] 325 mg PO ASDIR PRN 12/26/19 Aspirin [Ecotrin 81 mg EC Tablet] 81 mg PO DAILY 12/26/19 Cholecalciferol (Vitamin D3) [Vitamin D3 1000 Unit Tablet] 1,000 unit PO DAILY 12/26/19 Cranberry [Cranberry 400 mg Capsule] 400 mg PO DAILY 12/26/19 Cyanocobalamin (Vitamin B-12) [Vitamin B12] 2,500 mcg PO DAILY 12/26/19 Melatonin [Melatonin 5 mg Tablet] 10 mg PO QHS 12/26/19 Multivit with Calcium,Iron,Min [Women's Daily Formula] 1 tab PO DAILY 12/26/19 Psyllium Husk (with Sugar) [Metamucil Packet] 1 packet PO DAILY 12/26/19 Allergies/Adverse Reactions: No Known Allergies Allergy (Verified 12/25/19 16:22) Physical Exam Vital Signs: Temp Pulse Resp BP Pulse Ox 98.6 F 92 18 169/57 H 96 12/26/19 17:10 12/26/19 17:10 12/26/19 17:10 12/26/19 17:10 12/26/19 17:10 Intake & Output 12/25/19 12/26/19 12/27/19 06:59 06:59 06:59 Intake Total 0 550 Output Total 0 Balance 0 550 Weight 55.4 kg Results Laboratory Results: 12/26/19 06:13 12/26/19 06:13 12/25/19 12/26/19 12/26/19 20:55 06:13 06:13 WBC 12.7 H RBC 3.95 Hgb 12.9 Hct 36.8 MCV 93 MCH 32.6 MCHC 35.0 RDW 13.3 Plt Count 323 Sodium 134.8 L Potassium 4.2 Chloride 100 Carbon Dioxide 25 Anion Gap 10 BUN 11 Creatinine 0.56 Est GFR ( Amer) > 60 Glucose 184 H Calcium 9.4 Triglycerides 247 H Cholesterol 243.22 H LDL Cholesterol Direct 174 H VLDL Cholesterol 49.4 H HDL Cholesterol 36 L Urine Color STRAW Urine Appearance CLEAR Urine pH 7.0 Ur Specific [place] 1.038 Urine Protein 100 H Urine Glucose (UA) 50 H Urine Ketones NEGATIVE Urine Blood NEGATIVE Urine Nitrite NEGATIVE Ur Leukocyte Esterase TRACE H Urine WBC (Auto) 5 Urine RBC (Auto) 2 12/25/19 16:39 Troponin I < 0.012 Impressions: Chest X-Ray 12/25/19 16:54 IMPRESSION: NO ACUTE RADIOGRAPHIC FINDING IN THE CHEST. Head CT 12/25/19 16:54 IMPRESSION: Involutional changes with chronic microvascular ischemia and no acute intracranial imaging finding. EVIDENCE OF ACUTE STROKE: NO. Head CTA 12/25/19 17:55 IMPRESSION: Right internal carotid artery diffuse narrowing, string sign but patency maintained, likely chronic in nature. Mild 50% left internal carotid artery stenosis. No evidence for intracranial large vessel occlusion. Neck CTA 12/25/19 17:56 IMPRESSION: Right internal carotid artery diffuse narrowing, string sign but patency maintained, likely chronic in nature. Mild 50% left internal carotid artery stenosis. No evidence for intracranial large vessel occlusion. Brain MRI with MRA 12/26/19 00:00 IMPRESSION: Left-sided and early subacute nonhemorrhagic posterior temporal/insular cortex infarct. Moderate chronic white matter disease elsewhere in the brain and luul. 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 Findings are similar compared to CTA head and neck 12/25/2019. Findings discussed with Dr. Schaeffer EVIDENCE OF ACUTE STROKE: Yes, early subacute left posterior temporal cortical and subcortical white matter infarct. Head MRI 12/26/19 11:28 IMPRESSION: Left-sided and early subacute nonhemorrhagic posterior temporal/insular cortex infarct. Moderate chronic white matter disease elsewhere in the brain and lulu. 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 Findings are similar compared to CTA head and neck 12/25/2019. Findings discussed with Dr. Schaeffer EVIDENCE OF ACUTE STROKE: Yes, early subacute left posterior temporal cortical and subcortical white matter infarct. Assessment and Plan - Diagnosis (1) Non-hemorrhagic cerebrovascular accident (CVA) Is this a current diagnosis for this admission?: Yes Plan: Acute left-sided nonhemorrhagic posterior temporal/insular cortex infarct. Decreased flow signal in a small right cervical and skull base ICA. Moderate chronic white matter disease elsewhere in the brain and lulu. Patient has severe expressive and receptive aphasia. Continue telemetry, neurochecks, antiplatelets, permissive hypertension, PT/OT/ST, fall, seizure and aspiration precautions. (2) Hypertension Is this a current diagnosis for this admission?: Yes Plan: History of untreated hypertension. SBP 120-171. Permissive hypertension in the first 24 to 48 hours. We will slowly lower BP to normal levels after that. Preferably will use enalapril given history of diabetes. (3) Hyperlipidemia Is this a current diagnosis for this admission?: Yes Plan: ASCVD score of 60%. We will start on high intensity statin. Monitor LFTs. Monitor for myositis. Outpatient PCP follow-up. (4) Altered mental status Qualifiers: Altered mental status type: delirium Qualified Code(s): R41.0 - Disorientation, unspecified Is this a current diagnosis for this admission?: Yes Plan: Most likely to acute stroke. Patient has severe expressive and receptive aphasia. Plan as per #1. (5) Diabetes mellitus type 2 in nonobese Is this a current diagnosis for this admission?: Yes Plan: Newly diagnosed diabetes. Hemoglobin A1c 8.5%. Diabetic diet. Basal, sliding scale and correctional insulin. Accu-Cheks. Hypoglycemic protocol. Patient has good renal function and is a candidate for oral antidiabetic. We will switch to oral antidiabetics upon discharge. Outpatient PCP follow-up. Diabetic education. - Plan Summary Summary: Patient will be admitted to [facility], where she will receive routine supportive and symptomatic cares per the stroke protocol. Aspirin therapy was initiated in the emergency room. She will receive Ativan 1 mg IV every 4 hours as needed for anxiety or restlessness. She will receive Haldol 5 mg IV every 4 hours as needed for agitation. A speech therapy consultation and physical therapy consultation will be obtained. Patient will be on a cardiac and diabetic rest ricted diet. If patient becomes cooperative, consideration for an MRI of the head would be appropriate if she continues to demonstrate new psychologic changes/neurologic deficits.
[2019-12-26] MEDS: MELATONIN 5 MG TABLET PO SCH (21:48)
[2019-12-26] MEDS: ATORVASTATIN CALCIUM 80 MG TABLET PO SCH (21:48)
[2019-12-26] MEDS: INSULIN LISPRO 100 UNIT/ML 3 ML VIAL SUBCUT SCH (21:48)
[2019-12-26] MEDS: INSULIN GLARGINE,HUM.REC.ANLOG 1,000 UNIT/10 ML VIAL SUBCUT SCH (22:15)
[2019-12-27] MEDS: HEPARIN SOD (PORCINE) 5,000 UNIT/ML 1 ML VIAL SUBCUT SCH ×3 (05:55→22:35)
[2019-12-27] MEDS: FAMOTIDINE INJ/PF 20 MG/2 ML SDV IV SCH ×2 (10:05→22:38)
[2019-12-27] MEDS: CEFTRIAXONE 1 GM/D5W RTU 1 GM/50 ML RTUPB IV SCH (10:06)
[2019-12-27] MEDS: ASPIRIN 81 MG TABLET, ENT COATED PO SCH (10:06)
[2019-12-27] MEDS: INSULIN LISPRO 100 UNIT/ML 3 ML VIAL SUBCUT SCH ×4 (10:07→22:36)
[2019-12-27] MEDS: ENALAPRIL MALEATE 5 MG TABLET PO SCH (10:15)
--- NOTE | 2019-12-27 12:39 | PDOC PROGRESS REPORT ---
Subjective Progress Note for:: 12/26/19 Subjective:: TWILA SEAY is a 84 year old female who presented to the emergency room via EMS with acute altered mental status. Patient is combative and uncooperative with acute delirium. She is unable to participate in providing medical history. Patient's daughter indicates that she was last normal when she awoke at 5 AM to go to the bathroom. When the patient woke again at 10:30 AM she seemed to be having trouble with her speech and yelling and uncooperative. She refused to be transported to the hospital at that time, but continued to have progressively more garbled speech and was increasingly uncooperative and combative, resulting in her eventual transfer port to the emergency room. In the emergency room she was noted to have mild dysarthria, delirium with confusion and was uncooperative with her neurologic exam. A CT scan of her head showed no acute changes and a CTA of the head and neck were also unremarkable. She was subsequently admitted for further evaluation and treatment per the stroke protocol. Reason For Visit: ACUTE ALTERED MENTAL STATUS WITH DELIRIUM Physical Exam Vital Signs: Temp Pulse Resp BP Pulse Ox 98.2 F 61 20 160/94 H 93 12/27/19 06:56 12/27/19 08:00 12/27/19 08:00 12/27/19 08:00 12/27/19 08:00 Intake & Output 12/26/19 12/27/19 12/28/19 06:59 06:59 06:59 Intake Total 0 1200 Output Total 0 Balance 0 1200 Weight 55.4 kg 54.6 kg General appearance: PRESENT: no acute distress, well-developed, well-nourished Head exam: PRESENT: atraumatic, normocephalic Respiratory exam: PRESENT: clear to auscultation karyn. ABSENT: rales, rhonchi, wheezes Cardiovascular exam: PRESENT: RRR. ABSENT: diastolic murmur, rubs, systolic murmur GI/Abdominal exam: PRESENT: normal bowel sounds, soft. ABSENT: distended, guarding, mass, organolmegaly, rebound, tenderness Neurological exam: PRESENT: alert, awake, oriented to person, CN II-XII grossly intact, aphasic. ABSENT: motor sensory deficit Skin exam: PRESENT: dry, intact, warm. ABSENT: cyanosis, rash Results Laboratory Results: 12/26/19 06:13 12/26/19 06:13 12/25/19 20:55 Catheterized Urine Urine Culture - Final Enterococcus Faecalis(Group D) 12/25/19 16:39 Troponin I < 0.012 Impressions: Chest X-Ray 12/25/19 16:54 IMPRESSION: NO ACUTE RADIOGRAPHIC FINDING IN THE CHEST. Head CT 12/25/19 16:54 IMPRESSION: Involutional changes with chronic microvascular ischemia and no acute intracranial imaging finding. EVIDENCE OF ACUTE STROKE: NO. Head CTA 12/25/19 17:55 IMPRESSION: Right internal carotid artery diffuse narrowing, string sign but patency maintained, likely chronic in nature. Mild 50% left internal carotid artery stenosis. No evidence for intracranial large vessel occlusion. Neck CTA 12/25/19 17:56 IMPRESSION: Right internal carotid artery diffuse narrowing, string sign but patency maintained, likely chronic in nature. Mild 50% left internal carotid artery stenosis. No evidence for intracranial large vessel occlusion. Brain MRI with MRA 12/26/19 00:00 IMPRESSION: Left-sided and early subacute nonhemorrhagic posterior temporal/insular cortex infarct. Moderate chronic white matter disease elsewhere in the brain and lulu. 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 Findings are similar compared to CTA head and neck 12/25/2019. Findings discussed with Dr. Schaeffer EVIDENCE OF ACUTE STROKE: Yes, early subacute left posterior temporal cortical and subcortical white matter infarct. Head MRI 12/26/19 11:28 IMPRESSION: Left-sided and early subacute nonhemorrhagic posterior temporal/insular cortex infarct. Moderate chronic white matter disease elsewhere in the brain and lulu. 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 Findings are similar compared to CTA head and neck 12/25/2019. Findings discussed with Dr. Schaeffer EVIDENCE OF ACUTE STROKE: Yes, early subacute left posterior temporal cortical and subcortical white matter infarct. Assessment and Plan - Diagnosis (1) Non-hemorrhagic cerebrovascular accident (CVA) Is this a current diagnosis for this admission?: Yes Plan: Acute left-sided nonhemorrhagic posterior temporal/insular cortex infarct. Decreased flow signal in a small right cervical and skull base ICA. Moderate chronic white matter disease elsewhere in the brain and lulu. Patient has severe expressive and receptive aphasia. Continue telemetry, neurochecks, antiplatelets, permissive hypertension, PT/OT/ST, fall, seizure and aspiration precautions. (2) Hypertension Is this a current diagnosis for this admission?: Yes Plan: History of untreated hypertension. SBP 120-171. Permissive hypertension in the first 24 to 48 hours. We will slowly lower BP to normal levels after that. Preferably will use enalapril given history of diabetes. (3) Hyperlipidemia Is this a current diagnosis for this admission?: Yes Plan: ASCVD score of 60%. We will start on high intensity statin. Monitor LFTs. Monitor for myositis. Outpatient PCP follow-up. (4) Altered mental status Qualifiers: Altered mental status type: delirium Qualified Code(s): R41.0 - Disorientation, unspecified Is this a current diagnosis for this admission?: Yes Plan: Most likely to acute stroke. Patient has severe expressive and receptive aphasia. Plan as per #1. (5) Diabetes mellitus type 2 in nonobese Is this a current diagnosis for this admission?: Yes Plan: Newly diagnosed diabetes. Hemoglobin A1c 8.5%. Diabetic diet. Basal, sliding scale and correctional insulin. Accu-Cheks. Hypoglycemic protocol. Patient has good renal function and is a candidate for oral antidiabetic. We will switch to oral antidiabetics upon discharge. Outpatient PCP follow-up. Diabetic education.
--- NOTE | 2019-12-27 12:41 | PDOC PROGRESS REPORT ---
Subjective Progress Note for:: 12/27/19 Subjective:: TWILA SEAY is a 84 year old female who presented to the emergency room via EMS with acute altered mental status. Patient is combative and uncooperative with acute delirium. She is unable to participate in providing medical history. Patient's daughter indicates that she was last normal when she awoke at 5 AM to go to the bathroom. When the patient woke again at 10:30 AM she seemed to be having trouble with her speech and yelling and uncooperative. She refused to be transported to the hospital at that time, but continued to have progressively more garbled speech and was increasingly uncooperative and combative, resulting in her eventual transfer port to the emergency room. In the emergency room she was noted to have mild dysarthria, delirium with confusion and was uncooperative with her neurologic exam. A CT scan of her head showed no acute changes and a CTA of the head and neck were also unremarkable. She was subsequently admitted for further evaluation and treatment per the stroke protocol. 12/27/2019. No acute events overnight. Patient is currently resting in bed no apparent distress, pleasantly confused, still has severe receptive and ex pressive aphasia aphasia, improving compared to yesterday, follows some commands, moves all extremities. Denies any headache, chills, nausea, vomiting, diarrhea, constipation or any urinary symptoms. Reason For Visit: ACUTE ALTERED MENTAL STATUS WITH DELIRIUM Physical Exam Vital Signs: Temp Pulse Resp BP Pulse Ox 98.2 F 61 20 160/94 H 93 12/27/19 06:56 12/27/19 08:00 12/27/19 08:00 12/27/19 08:00 12/27/19 08:00 Intake & Output 12/26/19 12/27/19 12/28/19 06:59 06:59 06:59 Intake Total 0 1200 Output Total 0 Balance 0 1200 Weight 55.4 kg 54.6 kg General appearance: PRESENT: no acute distress, well-developed, well-nourished Head exam: PRESENT: atraumatic, normocephalic Respiratory exam: PRESENT: clear to auscultation karyn. ABSENT: rales, rhonchi, wheezes Cardiovascular exam: PRESENT: RRR. ABSENT: diastolic murmur, rubs, systolic murmur GI/Abdominal exam: PRESENT: normal bowel sounds, soft. ABSENT: distended, guarding, mass, organolmegaly, rebound, tenderness Extremities exam: PRESENT: full ROM. ABSENT: calf tenderness, clubbing, pedal edema Neurological exam: PRESENT: alert, awake, oriented to person, oriented to place, CN II-XII grossly intact. ABSENT: motor sensory deficit Results Laboratory Results: 12/26/19 06:13 12/26/19 06:13 12/25/19 20:55 Catheterized Urine Urine Culture - Final Enterococcus Faecalis(Group D) 12/25/19 16:39 Troponin I < 0.012 Impressions: Chest X-Ray 12/25/19 16:54 IMPRESSION: NO ACUTE RADIOGRAPHIC FINDING IN THE CHEST. Head CT 12/25/19 16:54 IMPRESSION: Involutional changes with chronic microvascular ischemia and no acute intracranial imaging finding. EVIDENCE OF ACUTE STROKE: NO. Head CTA 12/25/19 17:55 IMPRESSION: Right internal carotid artery diffuse narrowing, string sign but patency maintained, likely chronic in nature. Mild 50% left internal carotid artery stenosis. No evidence for intracranial large vessel occlusion. Neck CTA 12/25/19 17:56 IMPRESSION: Right internal carotid artery diffuse narrowing, string sign but patency maintained, likely chronic in nature. Mild 50% left internal carotid artery stenosis. No evidence for intracranial large vessel occlusion. Brain MRI with MRA 12/26/19 00:00 IMPRESSION: Left-sided and early subacute nonhemorrhagic posterior temporal/in sular cortex infarct. Moderate chronic white matter disease elsewhere in the brain and lulu. 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 Findings are similar compared to CTA head and neck 12/25/2019. Findings discussed with Dr. Schaeffer EVIDENCE OF ACUTE STROKE: Yes, early subacute left posterior temporal cortical and subcortical white matter infarct. Head MRI 12/26/19 11:28 IMPRESSION: Left-sided and early subacute nonhemorrhagic posterior temporal/insular cortex infarct. Moderate chronic white matter disease elsewhere in the brain and lulu. 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 Findings are similar compared to CTA head and neck 12/25/2019. Findings discussed with Dr. Schaeffer EVIDENCE OF ACUTE STROKE: Yes, early subacute left posterior temporal cortical and subcortical white matter infarct. Assessment and Plan - Diagnosis (1) Non-hemorrhagic cerebrovascular accident (CVA) Is this a current diagnosis for this admission?: Yes Plan: Acute left-sided nonhemorrhagic posterior temporal/insular cortex infarct. Decreased flow signal in a small right cervical and skull base ICA. Moderate chronic white matter disease elsewhere in the brain and lulu. Patient has severe expressive and receptive aphasia. Continue telemetry, neurochecks, antiplatelets, permissive hypertension, PT/OT/ST, fall, seizure and aspiration precautions. (2) Hypertension Is this a current diagnosis for this admission?: Yes Plan: History of untreated hypertension. SBP 120-171. Permissive hypertension in the first 24 to 48 hours. We will slowly lower BP to normal levels after that. Start on enalapril 5 mg p.o. daily. (3) Hyperlipidemia Is this a current diagnosis for this admission?: Yes Plan: ASCVD score of 60%. We will start on high intensity statin. Monitor LFTs. Monitor for myositis. Outpatient PCP follow-up. (4) Altered mental status Qualifiers: Altered mental status type: delirium Qualified Code(s): R41.0 - Disorientation, unspecified Is this a current diagnosis for this admission?: Yes Plan: Most likely to acute stroke. Patient has severe expressive and receptive aphasia. Plan as per #1. (5) Diabetes mellitus type 2 in nonobese Is this a current diagnosis for this admission?: Yes Plan: Newly diagnosed diabetes. Hemoglobin A1c 8.5%. Diabetic diet. Basal, sliding scale and correctional insulin. Accu-Cheks. Hypoglycemic protocol. Patient has good renal function and is a candidate for oral antidiabetic. We will switch to oral antidiabetics upon discharge. Outpatient PCP follow-up. Diabetic education.
[2019-12-27] MEDS: LEVOFLOXACIN 500 MG TABLET PO SCH (13:26)
[2019-12-27] MEDS: INSULIN GLARGINE,HUM.REC.ANLOG 1,000 UNIT/10 ML VIAL SUBCUT SCH (22:36)
[2019-12-27] MEDS: MELATONIN 5 MG TABLET PO SCH (22:39)
[2019-12-27] MEDS: ATORVASTATIN CALCIUM 80 MG TABLET PO SCH (22:39)
[2019-12-28] MEDS: HEPARIN SOD (PORCINE) 5,000 UNIT/ML 1 ML VIAL SUBCUT SCH ×3 (05:37→22:29)
[2019-12-28 06:44] LABS: ANION GAP 8 (5-19); BLOOD UREA NITROGEN 14 mg/dL (7-20); CALCIUM 9.4 mg/dL (8.4-10.2); CARBON DIOXIDE 25 mmol/L (22-30); CHLORIDE 102 mmol/L (98-107); GLUCOSE 156 mg/dL (75-110); POTASSIUM 4.1 mmol/L (3.6-5.0)
[2019-12-28] MEDS: ENALAPRIL MALEATE 5 MG TABLET PO SCH (09:11)
[2019-12-28] MEDS: LEVOFLOXACIN 500 MG TABLET PO SCH (09:11)
[2019-12-28] MEDS: FAMOTIDINE INJ/PF 20 MG/2 ML SDV IV SCH ×2 (09:11→22:29)
[2019-12-28] MEDS: ASPIRIN 81 MG TABLET, ENT COATED PO SCH (09:11)
[2019-12-28] MEDS: INSULIN LISPRO 100 UNIT/ML 3 ML VIAL SUBCUT SCH ×4 (09:35→22:11)
[2019-12-28] MEDS: ACETAMINOPHEN 325 MG TABLET PO PRN (10:50)
[2019-12-28 10:52] LABS: ABSOLUTE EOSINOPHILS # (AUTO) 0.2 10^3/uL (0.0-0.6); ABSOLUTE MONOCYTES (AUTO) 1.3 10^3/uL (0.1-1.4); ABSOLUTE NEUT (AUTO) 5.3 10^3/uL (1.7-8.2); BASOPHILS % (AUTO) 0.3 % (0-2); EOSINOPHILS % (AUTO) 2.5 % (0-6); HEMATOCRIT 37.6 % (36.0-47.0); HEMOGLOBIN 13.1 g/dL (12.0-15.5); LYMPHOCYTES % (AUTO) 29.8 % (13-45); MEAN CORPUSCULAR HEMOGLOBIN 32.8 pg (27.0-33.4); MEAN CORPUSCULAR VOLUME 94 fl (80-97); MONOCYTES % (AUTO) 13.6 % (3-13); PLATELET COUNT 319 10^3/uL (150-450); RED CELL DISTRIBUTION WIDTH 13.3 % (11.5-14.0); SEGMENTED NEUTROPHILS % (AUTO) 53.8 % (42-78); TOTAL CELLS COUNTED % (AUTO) 100 %; WHITE BLOOD COUNT 9.9 10^3/uL (4.0-10.5)
--- NOTE | 2019-12-28 11:48 | PDOC PROGRESS REPORT ---
Subjective Progress Note for:: 12/28/19 Subjective:: TWILA SEAY is a 84 year old female who presented to the emergency room via EMS with acute altered mental status. Patient is combative and uncooperative with acute delirium. She is unable to participate in providing medical history. Patient's daughter indicates that she was last normal when she awoke at 5 AM to go to the bathroom. When the patient woke again at 10:30 AM she seemed to be having trouble with her speech and yelling and uncooperative. She refused to be transported to the hospital at that time, but continued to have progressively more garbled speech and was increasingly uncooperative and combative, resulting in her eventual transfer port to the emergency room. In the emergency room she was noted to have mild dysarthria, delirium with confusion and was uncooperative with her neurologic exam. A CT scan of her head showed no acute changes and a CTA of the head and neck were also unremarkable. She was subsequently admitted for further evaluation and treatment per the stroke protocol. 12/27/2019. No acute events overnight. Patient is currently resting in bed no apparent distress, pleasantly confused, still has severe receptive and ex pressive aphasia aphasia, improving compared to yesterday, follows some commands, moves all extremities. Denies any headache, chills, nausea, vomiting, diarrhea, constipation or any urinary symptoms. 12/28/2019. No acute events overnight. Comfortably sitting with no apparent distress. Patient cooperative with physical examination, still has expressive aphasia, moves all extremities, denies any fever, chills, nausea, vomiting. Reason For Visit: ACUTE ALTERED MENTAL STATUS WITH DELIRIUM Physical Exam Vital Signs: Temp Pulse Resp BP Pulse Ox 97.3 F 70 16 149/76 H 94 12/28/19 08:53 12/28/19 09:11 12/28/19 08:53 12/28/19 08:53 12/28/19 08:53 Intake & Output 12/27/19 12/28/19 12/29/19 06:59 06:59 06:59 Intake Total 1200 320 Output Total 500 Balance 1200 -180 Weight 54.6 kg 54.6 kg General appearance: PRESENT: no acute distress, well-developed, well-nourished Head exam: PRESENT: atraumatic, normocephalic Respiratory exam: PRESENT: clear to auscultation karyn. ABSENT: rales, rhonchi, wheezes Cardiovascular exam: PRESENT: RRR. ABSENT: diastolic murmur, rubs, systolic murmur Pulses: PRESENT: normal dorsalis pedis pul GI/Abdominal exam: PRESENT: normal bowel sounds, soft. ABSENT: distended, guar ding, mass, organolmegaly, rebound, tenderness Neurological exam: PRESENT: alert, awake, oriented to person, oriented to place, CN II-XII grossly intact. ABSENT: motor sensory deficit Skin exam: PRESENT: dry, intact, warm. ABSENT: cyanosis, rash Results Laboratory Results: 12/28/19 05:54 12/28/19 05:54 12/28/19 12/28/19 05:54 05:54 WBC 9.9 RBC 4.00 Hgb 13.1 Hct 37.6 MCV 94 MCH 32.8 MCHC 35.0 RDW 13.3 Plt Count 319 Seg Neutrophils % 53.8 Sodium 135.2 L Potassium 4.1 Chloride 102 Carbon Dioxide 25 Anion Gap 8 BUN 14 Creatinine 0.71 Est GFR ( Amer) > 60 Glucose 156 H Calcium 9.4 12/25/19 20:55 Catheterized Urine Urine Culture - Final Enterococcus Faecalis(Group D) 12/25/19 16:39 Troponin I < 0.012 Impressions: Chest X-Ray 12/25/19 16:54 IMPRESSION: NO ACUTE RADIOGRAPHIC FINDING IN THE CHEST. Head CT 12/25/19 16:54 IMPRESSION: Involutional changes with chronic microvascular ischemia and no acute intracranial imaging finding. EVIDENCE OF ACUTE STROKE: NO. Head CTA 12/25/19 17:55 IMPRESSION: Right internal carotid artery diffuse narrowing, string sign but patency maintained, likely chronic in nature. Mild 50% left internal carotid artery stenosis. No evidence for intracranial large vessel occlusion. Neck CTA 12/25/19 17:56 IMPRESSION: Right internal carotid artery diffuse narrowing, string sign but patency maintained, likely chronic in nature. Mild 50% left internal carotid artery stenosis. No evidence for intracranial large vessel occlusion. Brain MRI with MRA 12/26/19 00:00 IMPRESSION: Left-sided and early subacute nonhemorrhagic posterior temporal/insular cortex infarct. Moderate chronic white matter disease elsewhere in the brain and lulu. 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 Findings are similar compared to CTA head and neck 12/25/2019. Findings discussed with Dr. Schaeffer EVIDENCE OF ACUTE STROKE: Yes, early subacute left posterior temporal cortical and subcortical white matter infarct. Head MRI 12/26/19 11:28 IMPRESSION: Left-sided and early subacute nonhemorrhagic posterior temporal/insular cortex infarct. Moderate chronic white matter disease elsewhere in the brain and lulu. 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 Findings are similar compared to CTA head and neck 12/25/2019. Findings discussed with Dr. Schaeffer EVIDENCE OF ACUTE STROKE: Yes, early subacute left posterior temporal cortical and subcortical white matter infarct. Assessment and Plan - Diagnosis (1) Non-hemorrhagic cerebrovascular accident (CVA) Is this a current diagnosis for this admission?: Yes Plan: Acute left-sided nonhemorrhagic posterior temporal/insular cortex infarct. Decreased flow signal in a small right cervical and skull base ICA. Moderate chronic white matter disease elsewhere in the brain and lulu. Patient has severe expressive and receptive aphasia. Continue telemetry, neurochecks, antiplatelets, permissive hypertension, PT/OT/ST, fall, seizure and aspiration precautions. (2) Hypertension Is this a current diagnosis for this admission?: Yes Plan: History of untreated hypertension. SBP 120-171. Permissive hypertension in the first 24 to 48 hours. We will slowly lower BP to normal levels after that. Start on enalapril 5 mg p.o. daily. (3) Hyperlipidemia Is this a current diagnosis for this admission?: Yes Plan: ASCVD score of 60%. We will start on high intensity statin. Monitor LFTs. Monitor for myositis. Outpatient PCP follow-up. (4) Altered mental status Qualifiers: Altered mental status type: delirium Qualified Code(s): R41.0 - Disorientation, unspecified Is this a current diagnosis for this admission?: Yes Plan: Most likely to acute stroke. Patient has severe expressive and receptive aphasia. Plan as per #1. (5) Diabetes mellitus type 2 in nonobese Is this a current diagnosis for this admission?: Yes Plan: Newly diagnosed diabetes. Hemoglobin A1c 8.5%. Diabetic diet. Basal, sliding scale and correctional insulin. Accu-Cheks. Hypoglycemic protocol. Patient has good renal function and is a candidate for oral antidiabetic. We will switch to oral antidiabetics upon discharge. Outpatient PCP follow-up. Diabetic education. (6) UTI (urinary tract infection) Qualifiers: Urinary tract infection type: acute cystitis Hematuria presence: without hematuria Qualified Code(s): N30.00 - Acute cystitis without hematuria Is this a current diagnosis for this admission?: Yes Plan: Due to Enterococcus faecalis. Sensitive to quinolones. Day 2/urine p.o. levofloxacin.
[2019-12-28] MEDS: MELATONIN 5 MG TABLET PO SCH (22:28)
[2019-12-28] MEDS: ATORVASTATIN CALCIUM 80 MG TABLET PO SCH (22:29)
[2019-12-28] MEDS: INSULIN GLARGINE,HUM.REC.ANLOG 1,000 UNIT/10 ML VIAL SUBCUT SCH (22:29)
[2019-12-29] MEDS: HEPARIN SOD (PORCINE) 5,000 UNIT/ML 1 ML VIAL SUBCUT SCH ×3 (05:53→21:05)
[2019-12-29] MEDS: INSULIN LISPRO 100 UNIT/ML 3 ML VIAL SUBCUT SCH ×4 (11:32→21:19)
[2019-12-29] MEDS: ASPIRIN 81 MG TABLET, ENT COATED PO SCH (11:34)
[2019-12-29] MEDS: LEVOFLOXACIN 500 MG TABLET PO SCH (11:34)
[2019-12-29] MEDS: FAMOTIDINE INJ/PF 20 MG/2 ML SDV IV SCH ×2 (11:34→21:06)
[2019-12-29] MEDS: ENALAPRIL MALEATE 10 MG TABLET PO SCH ×3 (11:38→13:21)
--- NOTE | 2019-12-29 13:46 | PDOC PROGRESS REPORT ---
Subjective Progress Note for:: 12/29/19 Subjective:: TWILA SEAY is a 84 year old female who presented to the emergency room via EMS with acute altered mental status. Patient is combative and uncooperative with acute delirium. She is unable to participate in providing medical history. Patient's daughter indicates that she was last normal when she awoke at 5 AM to go to the bathroom. When the patient woke again at 10:30 AM she seemed to be having trouble with her speech and yelling and uncooperative. She refused to be transported to the hospital at that time, but continued to have progressively more garbled speech and was increasingly uncooperative and combative, resulting in her eventual transfer port to the emergency room. In the emergency room she was noted to have mild dysarthria, delirium with confusion and was uncooperative with her neurologic exam. A CT scan of her head showed no acute changes and a CTA of the head and neck were also unremarkable. She was subsequently admitted for further evaluation and treatment per the stroke protocol. 12/27/2019. No acute events overnight. Patient is currently resting in bed no apparent distress, pleasantly confused, still has severe receptive and ex pressive aphasia aphasia, improving compared to yesterday, follows some commands, moves all extremities. Denies any headache, chills, nausea, vomiting, diarrhea, constipation or any urinary symptoms. 12/28/2019. No acute events overnight. Comfortably sitting with no apparent distress. Patient cooperative with physical examination, still has expressive aphasia, moves all extremities, denies any fever, chills, nausea, vomiting. 12/29/2019. No acute events overnight, 37 apparent distress. Effusion has much improved since admission, alert and oriented x3. Cooperative with evaluation. Inquiring about when she can go home. Denies any fever, chills, nausea, vomiting, diarrhea, constipation or any urinary symptoms. Pending transfer to rehab. Reason For Visit: ACUTE ALTERED MENTAL STATUS WITH DELIRIUM Physical Exam Vital Signs: Temp Pulse Resp BP Pulse Ox 97.8 F 82 16 166/73 H 96 12/29/19 11:39 12/29/19 12:00 12/29/19 12:00 12/29/19 12:00 12/29/19 12:00 Intake & Output 12/28/19 12/29/19 12/30/19 06:59 06:59 06:59 Intake Total 320 890 Output Total 500 200 Balance -180 690 Weight 54.6 kg 53.6 kg General appearance: PRESENT: no acute distress, well-developed, well-nourished Head exam: PRESENT: atraumatic, normocephalic Neck exam: ABSENT: carotid bruit, JVD, lymphadenopathy, thyromegaly Respiratory exam: PRESENT: clear to auscultation karyn. ABSENT: rales, rhonchi, wheezes Cardiovascular exam: PRESENT: RRR. ABSENT: diastolic murmur, rubs, systolic murmur GI/Abdominal exam: PRESENT: normal bowel sounds, soft. ABSENT: distended, guarding, mass, organolmegaly, rebound, tenderness Neurological exam: PRESENT: alert, awake, oriented to person, oriented to place, oriented to time, oriented to situation, CN II-XII grossly intact, aphasic. ABSENT: motor sensory deficit Results Laboratory Results: 12/28/19 05:54 12/28/19 05:54 12/25/19 16:39 Troponin I < 0.012 Impressions: Chest X-Ray 12/25/19 16:54 IMPRESSION: NO ACUTE RADIOGRAPHIC FINDING IN THE CHEST. Head CT 12/25/19 16:54 IMPRESSION: Involutional changes with chronic microvascular ischemia and no acute intracranial imaging finding. EVIDENCE OF ACUTE STROKE: NO. Head CTA 12/25/19 17:55 IMPRESSION: Right internal carotid artery diffuse narrowing, string sign but patency maintained, likely chronic in nature. Mild 50% left internal carotid artery stenosis. No evidence for intracranial large vessel occlusion. Neck CTA 12/25/19 17:56 IMPRESSION: Right internal carotid artery diffuse narrowing, string sign but patency maintained, likely chronic in nature. Mild 50% left internal carotid artery stenosis. No evidence for intracranial large vessel occlusion. Brain MRI with MRA 12/26/19 00:00 IMPRESSION: Left-sided and early subacute nonhemorrhagic posterior temporal/insular cortex infarct. Moderate chronic white matter disease elsewhere in the brain and lulu. 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 Findings are similar compared to CTA head and neck 12/25/2019. Findings discussed with Dr. Schaeffer EVIDENCE OF ACUTE STROKE: Yes, early subacute left posterior temporal cortical and subcortical white matter infarct. Head MRI 12/26/19 11:28 IMPRESSION: Left-sided and early subacute nonhemorrhagic posterior temporal/insular cortex infarct. Moderate chronic white matter disease elsewhere in the brain and lulu. 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 Findings are similar compared to CTA head and neck 12/25/2019. Findings discussed with Dr. Schaeffer EVIDENCE OF ACUTE STROKE: Yes, early subacute left posterior temporal cortical and subcortical white matter infarct. Assessment and Plan - Diagnosis (1) Non-hemorrhagic cerebrovascular accident (CVA) Is this a current diagnosis for this admission?: Yes Plan: Acute left-sided nonhemorrhagic posterior temporal/insular cortex infarct. Decreased flow signal in a small right cervical and skull base ICA. Moderate chronic white matter disease elsewhere in the brain and lulu. Patient has severe expressive and receptive aphasia. Continue telemetry, neurochecks, antiplatelets, permissive hypertension, PT/OT/ST, fall, seizure and aspiration precautions. (2) Hypertension Is this a current diagnosis for this admission?: Yes Plan: Improving. Not optimized. History of untreated hypertension. Permissive hypertension for the 24 to 48 hours. Increase enalapril to 5 mg p.o. daily. (3) Hyperlipidemia Is this a current diagnosis for this admission?: Yes Plan: ASCVD score of 60%. We will start on high intensity statin. Monitor LFTs. Monitor for myositis. Outpatient PCP follow-up. (4) Altered mental status Qualifiers: Altered mental status type: delirium Qualified Code(s): R41.0 - Disorientation, unspecified Is this a current diagnosis for this admission?: Yes Plan: Much improved. Most likely to acute stroke. Patient has severe expressive and receptive aphasia. Plan as per #1. (5) Diabetes mellitus type 2 in nonobese Is this a current diagnosis for this admission?: Yes Plan: Newly diagnosed diabetes. Hemoglobin A1c 8.5%. Diabetic diet. Basal, sliding scale and correctional insulin. Accu-Cheks. Hypoglycemic protocol. Patient has good renal function and is a candidate for oral antidiabetic. We will switch to oral antidiabetics upon discharge. Outpatient PCP follow-up. Diabetic education. (6) UTI (urinary tract infection) Qualifiers: Urinary tract infection type: acute cystitis Hematuria presence: without hematuria Qualified Code(s): N30.00 - Acute cystitis without hematuria Is this a current diagnosis for this admission?: Yes Plan: Due to Enterococcus faecalis. Sensitive to quinolones. Day 3 of levofloxacin. DC levofloxacin. Asymptomatic.
[2019-12-29] MEDS: METFORMIN HCL 500 MG TABLET PO SCH (16:45)
[2019-12-29] MEDS: MELATONIN 5 MG TABLET PO SCH (21:06)
[2019-12-29] MEDS: ATORVASTATIN CALCIUM 80 MG TABLET PO SCH (21:06)
[2019-12-29] MEDS: HALOPERIDOL LACTATE INJ 5 MG/1 ML VIAL IV PRN (21:16)
[2019-12-29] MEDS: INSULIN GLARGINE,HUM.REC.ANLOG 1,000 UNIT/10 ML VIAL SUBCUT SCH (21:19)
[2019-12-30] MEDS: HALOPERIDOL LACTATE INJ 5 MG/1 ML VIAL IV PRN ×2 (03:32→03:33)
[2019-12-30] MEDS: HEPARIN SOD (PORCINE) 5,000 UNIT/ML 1 ML VIAL SUBCUT SCH ×3 (05:16→21:30)
[2019-12-30] MEDS: INSULIN LISPRO 100 UNIT/ML 3 ML VIAL SUBCUT SCH ×4 (08:50→21:30)
[2019-12-30] MEDS: METFORMIN HCL 500 MG TABLET PO SCH ×2 (08:50→15:53)
[2019-12-30] MEDS: FAMOTIDINE INJ/PF 20 MG/2 ML SDV IV SCH ×2 (09:41→21:31)
[2019-12-30] MEDS: ASPIRIN 81 MG TABLET, ENT COATED PO SCH (09:42)
[2019-12-30] MEDS: ENALAPRIL MALEATE 10 MG TABLET PO SCH (09:43)
--- NOTE | 2019-12-30 10:23 | PDOC PROGRESS REPORT ---
Subjective Progress Note for:: 12/30/19 Subjective:: TWILA SEAY is a 84 year old female who presented to the emergency room via EMS with acute altered mental status. Patient is combative and uncooperative with acute delirium. She is unable to participate in providing medical history. Patient's daughter indicates that she was last normal when she awoke at 5 AM to go to the bathroom. When the patient woke again at 10:30 AM she seemed to be having trouble with her speech and yelling and uncooperative. She refused to be transported to the hospital at that time, but continued to have progressively more garbled speech and was increasingly uncooperative and combative, resulting in her eventual transfer port to the emergency room. In the emergency room she was noted to have mild dysarthria, delirium with confusion and was uncooperative with her neurologic exam. A CT scan of her head showed no acute changes and a CTA of the head and neck were also unremarkable. She was subsequently admitted for further evaluation and treatment per the stroke protocol. 12/27/2019. No acute events overnight. Patient is currently resting in bed no apparent distress, pleasantly confused, still has severe receptive and ex pressive aphasia aphasia, improving compared to yesterday, follows some commands, moves all extremities. Denies any headache, chills, nausea, vomiting, diarrhea, constipation or any urinary symptoms. 12/28/2019. No acute events overnight. Comfortably sitting with no apparent distress. Patient cooperative with physical examination, still has expressive aphasia, moves all extremities, denies any fever, chills, nausea, vomiting. 12/29/2019. No acute events overnight, 37 apparent distress. Effusion has much improved since admission, alert and oriented x3. Cooperative with evaluation. Inquiring about when she can go home. Denies any fever, chills, nausea, vomiting, diarrhea, constipation or any urinary symptoms. Pending transfer to rehab. 12/30/2019. Overnight patient was a bit agitated and was given Haldol, this morning patient is somnolent but arousable, aphasia has improved, follows some commands, cooperative with physical examination, denies any fever, chills, nausea, vomiting. Pending transfer to rehab. Reason For Visit: ACUTE ALTERED MENTAL STATUS WITH DELIRIUM Physical Exam Vital Signs: Temp Pulse Resp BP Pulse Ox 97.9 F 77 16 154/58 H 96 12/30/19 08:02 12/30/19 08:02 12/30/19 08:02 12/30/19 08:02 12/30/19 08:02 Intake & Output 12/29/19 12/30/19 12/31/19 06:59 06:59 06:59 Intake Total 890 1410 Output Total 200 Balance 690 1410 Weight 53.6 kg 53.3 kg General appearance: PRESENT: no acute distress, well-developed, well-nourished Head exam: PRESENT: atraumatic, normocephalic Respiratory exam: PRESENT: clear to auscultation karyn. ABSENT: rales, rhonchi, wheezes Cardiovascular exam: PRESENT: RRR. ABSENT: diastolic murmur, rubs, systolic murmur GI/Abdominal exam: PRESENT: normal bowel sounds, soft. ABSENT: distended, guarding, mass, organolmegaly, rebound, tenderness Neurological exam: PRESENT: alert, awake, oriented to person, CN II-XII grossly intact, aphasic. ABSENT: motor sensory deficit Results Laboratory Results: 12/28/19 05:54 12/28/19 05:54 12/25/19 16:39 Troponin I < 0.012 Impressions: Chest X-Ray 12/25/19 16:54 IMPRESSION: NO ACUTE RADIOGRAPHIC FINDING IN THE CHEST. Head CT 12/25/19 16:54 IMPRESSION: Involutional changes with chronic microvascular ischemia and no acute intracranial imaging finding. EVIDENCE OF ACUTE STROKE: NO. Head CTA 12/25/19 17:55 IMPRESSION: Right internal carotid artery diffuse narrowing, string sign but patency maintained, likely chronic in nature. Mild 50% left internal carotid artery stenosis. No evidence for intracranial large vessel occlusion. Neck CTA 12/25/19 17:56 IMPRESSION: Right internal carotid artery diffuse narrowing, string sign but patency maintained, likely chronic in nature. Mild 50% left internal carotid artery stenosis. No evidence for intracranial large vessel occlusion. Brain MRI with MRA 12/26/19 00:00 IMPRESSION: Left-sided and early subacute nonhemorrhagic posterior temporal/insular cortex infarct. Moderate chronic white matter disease elsewhere in the brain and lulu. 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 Findings are similar compared to CTA head and neck 12/25/2019. Findings discussed with Dr. Schaeffer EVIDENCE OF ACUTE STROKE: Yes, early subacute left posterior temporal cortical and subcortical white matter infarct. Head MRI 12/26/19 11:28 IMPRESSION: Left-sided and early subacute nonhemorrhagic posterior temporal/insular cortex infarct. Moderate chronic white matter disease elsewhere in the brain and lulu. 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 Findings are similar compared to CTA head and neck 12/25/2019. Findings discussed with Dr. Schaeffer EVIDENCE OF ACUTE STROKE: Yes, early subacute left posterior temporal cortical and subcortical white matter infarct. Assessment and Plan - Diagnosis (1) Non-hemorrhagic cerebrovascular accident (CVA) Is this a current diagnosis for this admission?: Yes Plan: Acute left-sided nonhemorrhagic posterior temporal/insular cortex infarct. Decreased flow signal in a small right cervical and skull base ICA. Moderate chronic white matter disease elsewhere in the brain and lulu. Aphasia improving. Continue telemetry, neurochecks, antiplatelets, permissive hypertension, PT/OT/ST, fall, seizure and aspiration precautions. (2) Hypertension Is this a current diagnosis for this admission?: Yes Plan: Improving. Not optimized. History of untreated hypertension. Permissive hypertension for the 24 to 48 hours. Continue enalapril 10 mg p.o. daily. (3) Hyperlipidemia Is this a current diagnosis for this admission?: Yes Plan: ASCVD score of 60%. We will start on high intensity statin. Monitor LFTs. Monitor for myositis. Outpatient PCP follow-up. (4) Altered mental status Qualifiers: Altered mental status type: delirium Qualified Code(s): R41.0 - Disorientation, unspecified Is this a current diagnosis for this admission?: Yes Plan: Much improved. Most likely to acute stroke. Patient has severe expressive and receptive aphasia. Plan as per #1. Patient gets agitated at night, has used Haldol as needed on several occasion. We will start on Seroquel 25 mg p.o. nightly. QT interval WNL. (5) Diabetes mellitus type 2 in nonobese Is this a current diagnosis for this admission?: Yes Plan: Newly diagnosed diabetes. Hemoglobin A1c 8.5%. Diabetic diet. Basal, sliding scale and correctional insulin. Accu-Cheks. Hypoglycemic protocol. Patient has good renal function and is a candidate for oral antidiabetic. We will switch to oral antidiabetics upon discharge. Outpatient PCP follow-up. Diabetic education. (6) UTI (urinary tract infection) Qualifiers: Urinary tract infection type: acute cystitis Hematuria presence: without hematuria Qualified Code(s): N30.00 - Acute cystitis without hematuria Is this a current diagnosis for this admission?: Yes Plan: Due to Enterococcus faecalis. Sensitive to quinolones. Received 3 days of levofloxacin. DC levofloxacin. Asymptomatic.
[2019-12-30] MEDS: ACETAMINOPHEN 325 MG TABLET PO PRN (16:02)
[2019-12-30] MEDS: INSULIN GLARGINE,HUM.REC.ANLOG 1,000 UNIT/10 ML VIAL SUBCUT SCH (21:31)
[2019-12-30] MEDS: MELATONIN 5 MG TABLET PO SCH (21:31)
[2019-12-30] MEDS: ATORVASTATIN CALCIUM 80 MG TABLET PO SCH (21:31)
[2019-12-30] MEDS ORDERED: QUETIAPINE FUMARATE 25 MG TABLET PO SCH (22:00)
[2019-12-31] MEDS: HEPARIN SOD (PORCINE) 5,000 UNIT/ML 1 ML VIAL SUBCUT SCH ×3 (05:16→22:02)
[2019-12-31] MEDS: INSULIN LISPRO 100 UNIT/ML 3 ML VIAL SUBCUT SCH ×4 (08:26→21:43)
[2019-12-31] MEDS: ASPIRIN 81 MG TABLET, ENT COATED PO SCH (10:00)
[2019-12-31] MEDS: METFORMIN HCL 500 MG TABLET PO SCH ×2 (10:00→15:36)
[2019-12-31] MEDS: FAMOTIDINE INJ/PF 20 MG/2 ML SDV IV SCH ×2 (10:01→21:58)
[2019-12-31] MEDS: ENALAPRIL MALEATE 10 MG TABLET PO SCH (10:02)
--- NOTE | 2019-12-31 11:49 | PDOC PROGRESS REPORT ---
Subjective Progress Note for:: 12/31/19 Subjective:: TWILA SEAY is a 84 year old female who presented to the emergency room via EMS with acute altered mental status. Patient is combative and uncooperative with acute delirium. She is unable to participate in providing medical history. Patient's daughter indicates that she was last normal when she awoke at 5 AM to go to the bathroom. When the patient woke again at 10:30 AM she seemed to be having trouble with her speech and yelling and uncooperative. She refused to be transported to the hospital at that time, but continued to have progressively more garbled speech and was increasingly uncooperative and combative, resulting in her eventual transfer port to the emergency room. In the emergency room she was noted to have mild dysarthria, delirium with confusion and was uncooperative with her neurologic exam. A CT scan of her head showed no acute changes and a CTA of the head and neck were also unremarkable. She was subsequently admitted for further evaluation and treatment per the stroke protocol. 12/27/2019. No acute events overnight. Patient is currently resting in bed no apparent distress, pleasantly confused, still has severe receptive and ex pressive aphasia aphasia, improving compared to yesterday, follows some commands, moves all extremities. Denies any headache, chills, nausea, vomiting, diarrhea, constipation or any urinary symptoms. 12/28/2019. No acute events overnight. Comfortably sitting with no apparent distress. Patient cooperative with physical examination, still has expressive aphasia, moves all extremities, denies any fever, chills, nausea, vomiting. 12/29/2019. No acute events overnight, 37 apparent distress. Effusion has much improved since admission, alert and oriented x3. Cooperative with evaluation. Inquiring about when she can go home. Denies any fever, chills, nausea, vomiting, diarrhea, constipation or any urinary symptoms. Pending transfer to rehab. 12/30/2019. Overnight patient was a bit agitated and was given Haldol, this morning patient is somnolent but arousable, aphasia has improved, follows some commands, cooperative with physical examination, denies any fever, chills, nausea, vomiting. Pending transfer to rehab. 12/31/2019. No acute events overnight patient currently receiving up in distress, still has some aphasia but much improved since admission, denies any fever, chills, nausea, vomiting. Pending for placement. Reason For Visit: ACUTE ALTERED MENTAL STATUS WITH DELIRIUM Physical Exam Vital Signs: Temp Pulse Resp BP Pulse Ox 98.5 F 72 16 151/83 H 98 12/31/19 08:15 12/31/19 08:15 12/31/19 08:15 12/31/19 08:15 12/31/19 08:15 Intake & Output 12/30/19 12/31/19 01/01/20 06:59 06:59 06:59 Intake Total 1410 790 Balance 1410 790 Weight 53.3 kg 52.5 kg General appearance: PRESENT: no acute distress, well-developed, well-nourished Head exam: PRESENT: atraumatic, normocephalic Respiratory exam: PRESENT: clear to auscultation karyn. ABSENT: rales, rhonchi, wheezes Cardiovascular exam: PRESENT: RRR. ABSENT: diastolic murmur, rubs, systolic murmur GI/Abdominal exam: PRESENT: normal bowel sounds, soft. ABSENT: distended, guarding, mass, organolmegaly, rebound, tenderness Neurological exam: PRESENT: alert, awake, oriented to person, CN II-XII grossly intact. ABSENT: motor sensory deficit Results Laboratory Results: 12/28/19 05:54 12/28/19 05:54 12/25/19 16:39 Troponin I < 0.012 Impressions: Chest X-Ray 12/25/19 16:54 IMPRESSION: NO ACUTE RADIOGRAPHIC FINDING IN THE CHEST. Head CT 12/25/19 16:54 IMPRESSION: Involutional changes with chronic microvascular ischemia and no acute intracranial imaging finding. EVIDENCE OF ACUTE STROKE: NO. Head CTA 12/25/19 17:55 IMPRESSION: Right internal carotid artery diffuse narrowing, string sign but patency maintained, likely chronic in nature. Mild 50% left internal carotid artery stenosis. No evidence for intracranial large vessel occlusion. Neck CTA 12/25/19 17:56 IMPRESSION: Right internal carotid artery diffuse narrowing, string sign but patency maintained, likely chronic in nature. Mild 50% left internal carotid artery stenosis. No evidence for intracranial large vessel occlusion. Brain MRI with MRA 12/26/19 00:00 IMPRESSION: Left-sided and early subacute nonhemorrhagic posterior temporal/insular cortex infarct. Moderate chronic white matter disease elsewhere in the brain and lulu. 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 Findings are similar compared to CTA head and neck 12/25/2019. Findings discussed with Dr. Schaeffer EVIDENCE OF ACUTE STROKE: Yes, early subacute left posterior temporal cortical and subcortical white matter infarct. Head MRI 12/26/19 11:28 IMPRESSION: Left-sided and early subacute nonhemorrhagic posterior temporal/insular cortex infarct. Moderate chronic white matter disease elsewhere in the brain and lulu. 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 Findings are similar compared to CTA head and neck 12/25/2019. Findings discussed with Dr. Schaeffer EVIDENCE OF ACUTE STROKE: Yes, early subacute left posterior temporal cortical and subcortical white matter infarct. Assessment and Plan - Diagnosis (1) Non-hemorrhagic cerebrovascular accident (CVA) Is this a current diagnosis for this admission?: Yes Plan: Acute left-sided nonhemorrhagic posterior temporal/insular cortex infarct. Decreased flow signal in a small right cervical and skull base ICA. Moderate chronic white matter disease elsewhere in the brain and lulu. Aphasia improving. Continue telemetry, neurochecks, antiplatelets, permissive hypertension, PT/OT/ST, fall, seizure and aspiration precautions. (2) Hypertension Is this a current diagnosis for this admission?: Yes Plan: Improving. Not optimized. History of untreated hypertension. Permissive hypertension for the 24 to 48 hours. Continue enalapril 20 mg p.o. daily. (3) Hyperlipidemia Is this a current diagnosis for this admission?: Yes Plan: ASCVD score of 60%. We will start on high intensity statin. Monitor LFTs. Monitor for myositis. Outpatient PCP follow-up. (4) Altered mental status Qualifiers: Altered mental status type: delirium Qualified Code(s): R41.0 - Disorientation, unspecified Is this a current diagnosis for this admission?: Yes Plan: Much improved. Most likely to acute stroke. Patient has severe expressive and receptive aphasia. Plan as per #1. Patient gets agitated at night, has used Haldol as needed on several occasion. We will start on Seroquel 25 mg p.o. nightly. QT interval WNL. (5) Diabetes mellitus type 2 in nonobese Is this a current diagnosis for this admission?: Yes Plan: Newly diagnosed diabetes. Hemoglobin A1c 8.5%. Diabetic diet. Basal, sliding scale and correctional insulin. Accu-Cheks. Hypoglycemic protocol. Patient has good renal function and is a candidate for oral antidiabetic. We will switch to oral antidiabetics upon discharge. Outpatient PCP follow-up. Diabetic education. (6) UTI (urinary tract infection) Qualifiers: Urinary tract infection type: acute cystitis Hematuria presence: without hematuria Qualified Code(s): N30.00 - Acute cystitis without hematuria Is this a current diagnosis for this admission?: Yes Plan: Due to Enterococcus faecalis. Sensitive to quinolones. Received 3 days of levofloxacin. DC levofloxacin. Asymptomatic.
[2019-12-31] MEDS: INSULIN GLARGINE,HUM.REC.ANLOG 1,000 UNIT/10 ML VIAL SUBCUT SCH (21:44)
[2019-12-31] MEDS: MELATONIN 5 MG TABLET PO SCH (22:00)
[2019-12-31] MEDS: QUETIAPINE FUMARATE 25 MG TABLET PO SCH (22:00)
[2019-12-31] MEDS: ATORVASTATIN CALCIUM 80 MG TABLET PO SCH (22:00)
[2020-01-01] MEDS: HEPARIN SOD (PORCINE) 5,000 UNIT/ML 1 ML VIAL SUBCUT SCH ×4 (05:19→22:13)
[2020-01-01] MEDS: INSULIN LISPRO 100 UNIT/ML 3 ML VIAL SUBCUT SCH ×4 (08:44→22:10)
[2020-01-01] MEDS: METFORMIN HCL 500 MG TABLET PO SCH ×2 (09:41→16:54)
[2020-01-01] MEDS: ENALAPRIL MALEATE 10 MG TABLET PO SCH (09:42)
[2020-01-01] MEDS: ASPIRIN 81 MG TABLET, ENT COATED PO SCH (09:43)
[2020-01-01] MEDS: FAMOTIDINE INJ/PF 20 MG/2 ML SDV IV SCH ×2 (09:43→22:15)
--- NOTE | 2020-01-01 13:39 | PDOC TRANSFER SUMMARY ---
Impression - Admit/DC Date/PCP Admission Date/Primary Care Provider: 12/25/19 22:46 FRANNIE ZIMMERMAN MD Discharge Date: 01/01/20 - Discharge Diagnosis (1) Altered mental status Is this a current diagnosis for this admission?: Yes (2) Diabetes mellitus type 2 in nonobese Is this a current diagnosis for this admission?: Yes (3) Hyperlipidemia Is this a current diagnosis for this admission?: Yes (4) Hypertension Is this a current diagnosis for this admission?: Yes (5) Non-hemorrhagic cerebrovascular accident (CVA) Is this a current diagnosis for this admission?: Yes (6) UTI (urinary tract infection) Is this a current diagnosis for this admission?: Yes - Additional Information Resuscitation Status: Do Not Resuscitate Discharge Diet: Cardiac, Diabetic Discharge Activity: Activity As Tolerated, Balance Activity w/Rest, Supervised Activity Referrals: FRANNIE ZIMMERMAN MD [Primary Care Provider] - 01/29/20 11:15 am Prescriptions: Metformin HCl [Glucophage 500 mg Tablet] 500 mg PO BIDACBS #60 tablet Insulin Glargine,Hum.rec.anlog [Lantus Insulin 100 Unit/mL Insulin Pen] 8 unit SUBCUT QHS #10 ml Atorvastatin Calcium [Lipitor 80 mg Tablet] 80 mg PO QHS #30 tablet Pen Needle, Diabetic [Pen [place]] 1 each MC QHS #30 dis.needle Quetiapine Fumarate [Seroquel 25 mg Tablet] 12.5 mg PO QHS #14 tablet Enalapril Maleate [Vasotec 10 mg Tablet] 20 mg PO DAILY #60 tablet Home Medications: Amlodipine Besylate [Norvasc 5 mg Tablet] 5 mg PO DAILY 12/26/19 Aspirin [Ecotrin 81 mg EC Tablet] 81 mg PO DAILY 12/26/19 Cholecalciferol (Vitamin D3) [Vitamin D3 1000 Unit Tablet] 1,000 unit PO DAILY 12/26/19 Cranberry [Cranberry 400 mg Capsule] 400 mg PO DAILY 12/26/19 Cyanocobalamin (Vitamin B-12) [Vitamin B12] 2,500 mcg PO DAILY 12/26/19 Melatonin [Melatonin 5 mg Tablet] 10 mg PO QHS 12/26/19 Multivit with Calcium,Iron,Min [Women's Daily Formula] 1 tab PO DAILY 12/26/19 Psyllium Husk (with Sugar) [Metamucil Packet] 1 packet PO DAILY 12/26/19 Acetaminophen [Tylenol 325 mg Tablet] 650 mg PO Q4HP PRN tablet 01/01/20 Aspirin [Ecotrin 81 mg EC Tablet] 81 mg PO DAILY tabec 01/01/20 Atorvastatin Calcium [Lipitor 80 mg Tablet] 80 mg PO QHS #30 tablet 01/01/20 Docusate Sodium [Colace 100 mg Capsule] 100 mg PO BIDP PRN capsule 01/01/20 Enalapril Maleate [Vasotec 10 mg Tablet] 20 mg PO DAILY #60 tablet 01/01/20 Insulin Glargine,Hum.rec.anlog [Lantus Insulin 100 Unit/mL Insulin Pen] 8 unit SUBCUT QHS #10 ml 01/01/20 Metformin HCl [Glucophage 500 mg Tablet] 500 mg PO BIDACBS #60 tablet 01/01/20 Pen Needle, Diabetic [Pen [place]] 1 each MC QHS #30 dis.needle 01/01/20 Quetiapine Fumarate [Seroquel 25 mg Tablet] 12.5 mg PO QHS #14 tablet 01/01/20 History of Present Illiness History of Present Illness: Per H&P by Dr. Herring: TWILA SEAY is a 84 year old female who presented to the emergency room via EMS with acute altered mental status. Patient is combative and uncooperative with acute delirium. She is unable to participate in providing medical history. Patient's daughter indicates that she was last normal when she awoke at 5 AM to go to the bathroom. When the patient woke again at 10:30 AM she seemed to be having trouble with her speech and yelling and uncooperative. She refused to be transported to the hospital at that time, but continued to have progressively more garbled speech and was increasingly uncooperative and combative, resulting in her eventual transfer port to the emergency room. In the emergency room she was noted to have mild dysarthria, delirium with confusion and was uncooperative with her neurologic exam. A CT scan of her head showed no acute changes and a CTA of the head and neck were also unremarkable. She was subsequently admitted for further evaluation and treatment per the stroke protocol. Hospital Course Hospital Course: (1) Non-hemorrhagic cerebrovascular accident (CVA) Acute left-sided nonhemorrhagic posterior temporal/insular cortex infarct. Decreased flow signal in a small right cervical and skull base ICA. Moderate chronic white matter disease elsewhere in the brain and lulu. Aphasia improving. Patient was admitted to [facility] on continuous cardiac telemetry. She is placed on daily aspirin and statin therapy. She was allowed permissive hypertension x48 hours; blood pressure is improved following start of enalapril. Glucose control was obtained through combination of insulin and metformin. Patient was seen by PT/OT/ST. She is now stable for discharge to SNF for continued care. (2) Hypertension Improving. Not optimized. History of untreated hypertension. Allowed permissive hypertension x48 hours. Continue enalapril 20 mg p.o. daily. Recommend close outpatient follow up for continued medication adjustments. (3) Hyperlipidemia ASCVD score of 60%. Continue on high intensity statin. Monitor LFTs. Monitor for myositis. Outpatient PCP follow-up. (4) Altered mental status Much improved. Most likely related to acute stroke. Plan as per #1. Decreased agitation following start of Seroquel 25 mg p.o. nightly. QT interval WNL. (5) Diabetes mellitus type 2 in nonobese Newly diagnosed diabetes. Hemoglobin A1c 8.5%. Patient is placed on a heart healthy, diabetic diet. While admitted, she received basal and sliding scale insulin. Accu-Cheks. Patient has good renal function and is a candidate for oral antidiabetic. She is discharged home on Lantus 8 units nightly and metformin 500 mg twice daily. Outpatient PCP follow-up for further medication dosing adjustments. (6) UTI (urinary tract infection) Resolved. Due to Enterococcus faecalis. Sensitive to quinolones. Received 3 days of levofloxacin. Physical Exam Vital Signs: Temp Pulse Resp BP Pulse Ox 97.7 F 81 16 152/64 H 95 01/01/20 11:39 01/01/20 11:39 01/01/20 11:39 01/01/20 11:39 01/01/20 11:39 Intake & Output 12/31/19 01/01/20 01/02/20 06:59 06:59 06:59 Intake Total 790 1065 Balance 790 1065 Weight 52.5 kg 52.2 kg General appearance: PRESENT: no acute distress, well-developed, well-nourished Head exam: PRESENT: atraumatic, normocephalic Eye exam: PRESENT: conjunctiva pink, EOMI, PERRLA. ABSENT: scleral icterus Mouth exam: PRESENT: moist, tongue midline Respiratory exam: PRESENT: clear to auscultation karyn, symmetrical, unlabored, other - Room air. ABSENT: rales, rhonchi, wheezes Cardiovascular exam: PRESENT: RRR. ABSENT: diastolic murmur, rubs, systolic murmur Pulses: PRESENT: normal dorsalis pedis pul Vascular exam: PRESENT: normal capillary refill Extremities exam: PRESENT: full ROM. ABSENT: calf tenderness, clubbing, pedal edema Musculoskeletal exam: PRESENT: ambulatory - Front wheel walker Neurological exam: PRESENT: alert, awake, oriented to person, oriented to place, CN II-XII grossly intact, other - Pleasantly confused. ABSENT: motor sensory deficit Psychiatric exam: PRESENT: appropriate affect, normal mood. ABSENT: homicidal ideation, suicidal ideation Skin exam: PRESENT: dry, intact, warm. ABSENT: cyanosis, rash Results Laboratory Results: WBC 9.9 10^3/uL (4.0-10.5) 12/28/19 05:54 RBC 4.00 10^6/uL (3.72-5.28) 12/28/19 05:54 Hgb 13.1 g/dL (12.0-15.5) 12/28/19 05:54 Hct 37.6 % (36.0-47.0) 12/28/19 05:54 MCV 94 fl (80-97) 12/28/19 05:54 MCH 32.8 pg (27.0-33.4) 12/28/19 05:54 MCHC 35.0 g/dL (32.0-36.0) 12/28/19 05:54 RDW 13.3 % (11.5-14.0) 12/28/19 05:54 Plt Count 319 10^3/uL (150-450) 12/28/19 05:54 Lymph % (Auto) 29.8 % (13-45) 12/28/19 05:54 [place] % (Auto) 13.6 % (3-13) H 12/28/19 05:54 Eos % (Auto) 2.5 % (0-6) 12/28/19 05:54 Baso % (Auto) 0.3 % (0-2) 12/28/19 05:54 Absolute Neuts (auto) 5.3 10^3/uL (1.7-8.2) 12/28/19 05:54 Absolute Lymphs (auto) 3.0 10^3/uL (0.5-4.7) 12/28/19 05:54 Absolute Monos (auto) 1.3 10^3/uL (0.1-1.4) 12/28/19 05:54 Absolute Eos (auto) 0.2 10^3/uL (0.0-0.6) 12/28/19 05:54 Absolute Basos (auto) 0.0 10^3/uL (0.0-0.2) 12/28/19 05:54 Seg Neutrophils % 53.8 % (42-78) 12/28/19 05:54 PT 13.5 SEC (11.4-15.4) 12/25/19 16:39 INR 1.03 12/25/19 16:39 Sodium 135.2 mmol/L (137-145) L 12/28/19 05:54 Potassium 4.1 mmol/L (3.6-5.0) 12/28/19 05:54 Chloride 102 mmol/L (98-107) 12/28/19 05:54 Carbon Dioxide 25 mmol/L (22-30) 12/28/19 05:54 Anion Gap 8 (5-19) 12/28/19 05:54 BUN 14 mg/dL (7-20) 12/28/19 05:54 Creatinine 0.71 mg/dL (0.52-1.25) 12/28/19 05:54 Est GFR ( Amer) > 60 (>60) 12/28/19 05:54 Est GFR (MDRD) Non-Af > 60 (>60) 12/28/19 05:54 Glucose 156 mg/dL (75-110) H 12/28/19 05:54 POC Glucose 121 mg/dL (70-110) H 01/01/20 11:37 Hemoglobin A1c % 8.5 % (4.7-6.0) H 12/26/19 06:13 Calcium 9.4 mg/dL (8.4-10.2) 12/28/19 05:54 Magnesium 1.9 mg/dL (1.6-2.3) 12/25/19 16:39 Total Bilirubin 0.6 mg/dL (0.2-1.3) 12/25/19 16:39 Direct Bilirubin 0.1 mg/dL (0.0-0.4) 12/25/19 16:39 Neonat Total Bilirubin Not Reportable 12/25/19 16:39 Neonat Direct Bilirubin Not Reportable 12/25/19 16:39 Neonat Indirect Bili Not Reportable 12/25/19 16:39 AST 56 U/L (14-36) H 12/25/19 16:39 ALT 37 U/L (<35) H 12/25/19 16:39 Alkaline Phosphatase 82 U/L (38-126) 12/25/19 16:39 Troponin I < 0.012 ng/mL 12/25/19 16:39 Total Protein 7.9 g/dL (6.3-8.2) 12/25/19 16:39 Albumin 4.3 g/dL (3.5-5.0) 12/25/19 16:39 Triglycerides 247 mg/dL (<150) H 12/26/19 06:13 Cholesterol 243.22 mg/dL (0-200) H 12/26/19 06:13 LDL Cholesterol Direct 174 mg/dL (<100) H 12/26/19 06:13 VLDL Cholesterol 49.4 mg/dL (10-31) H 12/26/19 06:13 HDL Cholesterol 36 mg/dL (>40) L 12/26/19 06:13 Urine Color STRAW 12/25/19 20:55 Urine Appearance CLEAR 12/25/19 20:55 Urine pH 7.0 (5.0-9.0) 12/25/19 20:55 Ur Specific [place] 1.038 12/25/19 20:55 Urine Protein 100 mg/dL (NEGATIVE) H 12/25/19 20:55 Urine Glucose (UA) 50 mg/dL (NEGATIVE) H 12/25/19 20:55 Urine Ketones NEGATIVE mg/dL (NEGATIVE) 12/25/19 20:55 Urine Blood NEGATIVE (NEGATIVE) 12/25/19 20:55 Urine Nitrite NEGATIVE (NEGATIVE) 12/25/19 20:55 Urine Bilirubin NEGATIVE (NEGATIVE) 12/25/19 20:55 Urine Urobilinogen NEGATIVE mg/dL (<2.0) 12/25/19 20:55 Ur Leukocyte Esterase TRACE (NEGATIVE) H 12/25/19 20:55 Urine WBC (Auto) 5 /HPF 12/25/19 20:55 Urine RBC (Auto) 2 /HPF 12/25/19 20:55 Urine Mucus (Auto) MANY /LPF 12/25/19 20:55 Urine Ascorbic Acid NEGATIVE (NEGATIVE) 12/25/19 20:55 COVID-19 Source NASOPHARYNGEAL 12/29/19 15:45 COVID-19 (LAUREN) NOT DETECTED 12/29/19 15:45 12/25/19 16:39 Troponin I < 0.012 Impressions: Chest X-Ray 12/25/19 16:54 IMPRESSION: NO ACUTE RADIOGRAPHIC FINDING IN THE CHEST. Head CT 12/25/19 16:54 IMPRESSION: Involutional changes with chronic microvascular ischemia and no acute intracranial imaging finding. EVIDENCE OF ACUTE STROKE: NO. Head CTA 12/25/19 17:55 IMPRESSION: Right internal carotid artery diffuse narrowing, string sign but patency maintained, likely chronic in nature. Mild 50% left internal carotid artery stenosis. No evidence for intracranial large vessel occlusion. Neck CTA 12/25/19 17:56 IMPRESSION: Right internal carotid artery diffuse narrowing, string sign but patency maintained, likely chronic in nature. Mild 50% left internal carotid artery stenosis. No evidence for intracranial large vessel occlusion. Brain MRI with MRA 12/26/19 00:00 IMPRESSION: Left-sided and early subacute nonhemorrhagic posterior temporal/insular cortex infarct. Moderate chronic white matter disease elsewhere in the brain and lulu. 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 Findings are similar compared to CTA head and neck 12/25/2019. Findings discussed with Dr. Schaeffer EVIDENCE OF ACUTE STROKE: Yes, early subacute left posterior temporal cortical and subcortical white matter infarct. Head MRI 12/26/19 11:28 IMPRESSION: Left-sided and early subacute nonhemorrhagic posterior temporal/insular cortex infarct. Moderate chronic white matter disease elsewhere in the brain and lulu. 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 Findings are similar compared to CTA head and neck 12/25/2019. Findings discussed with Dr. Schaeffer EVIDENCE OF ACUTE STROKE: Yes, early subacute left posterior temporal cortical and subcortical white matter infarct. Plan Plan of Treatment: Patient is discharged to [facility]. She should follow-up with her primary care provider within 1 week. Continue medications as ordered. Eat a heart healthy, consistent carb diet. Return to the emergency department as needed for concerning symptoms. Time Spent: Greater than 30 Minutes Stroke Is this a Stroke Patient?: Yes Stroke Pt being discharged on Anti-thrombolytic therapy?: Yes Stroke Pt being discharged on Anti-coagulation therapy?: No Reason(s) for not prescribing Anti-coagulation therapy:: Not indicated Stroke Pt being discharged on Statins?: Yes Acute Heart Failure - Is this a Heart Failure Patient?: No
[2020-01-01] MEDS: INSULIN GLARGINE,HUM.REC.ANLOG 1,000 UNIT/10 ML VIAL SUBCUT SCH (22:11)
[2020-01-01] MEDS: QUETIAPINE FUMARATE 25 MG TABLET PO SCH (22:12)
[2020-01-01] MEDS: ATORVASTATIN CALCIUM 80 MG TABLET PO SCH (22:12)
[2020-01-01] MEDS: MELATONIN 5 MG TABLET PO SCH (22:13)
[2020-01-02 01:11] VITALS: BP 134/58
[2020-01-02] MEDS: HEPARIN SOD (PORCINE) 5,000 UNIT/ML 1 ML VIAL SUBCUT SCH (05:56)
[2020-01-02] MEDS: INSULIN LISPRO 100 UNIT/ML 3 ML VIAL SUBCUT SCH ×2 (08:10→11:36)
[2020-01-02] MEDS: METFORMIN HCL 500 MG TABLET PO SCH (09:17)
[2020-01-02] MEDS: ASPIRIN 81 MG TABLET, ENT COATED PO SCH (09:17)
[2020-01-02] MEDS: ENALAPRIL MALEATE 10 MG TABLET PO SCH (09:17)
[2020-01-02] MEDS: FAMOTIDINE INJ/PF 20 MG/2 ML SDV IV SCH (09:17)
[2020-01-02] MEDS ORDERED: METOPROLOL TARTRATE PF/INJ 5 MG/5 ML SDV IV ONE (12:30)
== END 2020-01-02 12:37 | disposition home health service (06) | DRG 65 ==
LOC: ER 16:17 → UNDOADMIN 21:56 → EH 21:56 → 3W 12-26
PROVIDERS: ADMIT Emergency Medicine; ATTEND Registered Nurse
DX: I63.9 Cerebral infarction, unspecified (principal); I69.354 Hemiplegia and hemiparesis following cerebral infarction affecting left non-dominant side; E87.1 Hypo-osmolality and hyponatremia; N30.00 Acute cystitis without hematuria; R47.01 Aphasia; I71.2 Thoracic aortic aneurysm, without rupture; E11.65 Type 2 diabetes mellitus with hyperglycemia; E78.5 Hyperlipidemia, unspecified; I10 Essential (primary) hypertension; Z66 Do not resuscitate; B95.2 Enterococcus as the cause of diseases classified elsewhere; R41.82 Altered mental status, unspecified; R41.0 Disorientation, unspecified; R47.1 Dysarthria and anarthria; Z79.82 Long term (current) use of aspirin; Z79.4 Long term (current) use of insulin; Z79.899 Other long term (current) drug therapy; Z87.891 Personal history of nicotine dependence; Z82.49 Family history of ischemic heart disease and other diseases of the circulatory system
CPT/HCPCS: 36415; 51701; 70450; 70496; 70498; 70544; 70551; 71045; 80048; 80053; 80061; 81001; 82962; 83036; 83735; 84484; 85025; 85027; 85610; 87086; 87088; 87186; 87635; 93005; 93010; 96374; 99285; C9803; J0360; J0696; J1630; J1644; J1815; J2060; J3490; S0028